=== PATIENT | male | born 1960 | race Caucasian/White ===

== ENCOUNTER 2018-06-11 08:30 | Observation (INO) | payer OTHER, SELFPAY ==
[2018-06-11] VITALS (11 sets, daily range): BP systolic 117–146; BP diastolic 76–92; PULSE 88–105; RESP 16–20; TEMP 36.5–37.2; O2SAT 92–99; BMI 20.5
--- NOTE | 2018-06-11 08:55 | RAD_ITS ---
STUDY: X-RAY - ABDOMEN/PELVIS REASON FOR EXAM: Male, 58 years old. Periumbilical and lower abdominal pain. History of hernia. TECHNIQUE: AP supine and upright views of the abdomen and pelvis. COMPARISON: None. FINDINGS: Normal visualized lung bases. Mild elevation of the right hemidiaphragm. There are dilated loops of the small intestine with a non-distended colon consistent with a small bowel obstruction. Small amount of gas is seen in the colon and rectum. This may represent an incomplete obstruction. There is evidence of thickening of the small bowel wall with separation of bowel loops. Bowel edema should be ruled out. There is no demonstrated free abdominal air. The visualized liver, spleen and kidneys are grossly normal in size and morphology. Master calcification in the pelvis. Degenerative changes in the lower lumbar spine. RAD/Abd Inc Decub and/or Erect IMPRESSION: Findings in keeping with small bowel obstruction which may be partial at this time. Radiographic evidence of bowel wall thickening suggestive of edema. Correlation with a CAT scan is recommended. Electronically Signed: John Hernandez MD at 9:19 EST Tel [phone], Service support ,
--- NOTE | 2018-06-11 08:56 | ED.DCSUM_ITS ---
- ER Visit Summary Date of Service: 06/11/18 Chief Complaint: Hernia and abdominal pain History of Present Illness: The patient is a 58 M presenting for evaluation secondary to abdominal pain. Patient states that he was seen by his primary care physician recently and was diagnosed as having a hernia. He is scheduled to see a general surgeon on Monday of this week. Hernia is located in his right inguinal region and tends to be reduced in the morning, and tends to be out as the day goes on. Patient states that on Monday he had some diffuse crampy abdominal pain some nausea vomiting and diarrhea. He reports that he is continuing to have some mild periumbilical pain and nausea and decreased p.o. intake. He does state that he has had some chills associated with this. Denies any urinary signs or symptoms. He still passing flatus. Physical Examination: Thin male no acute distress. Head normocephalic. Moist mucous membranes. Heart regular rate and rhythm, lungs sounds clear. Abdomen was soft minimally tender in the periumbilical region. Right inguinal region is tender to palpation with a reducible hernia noted with Valsalva. Normal distal pulses. Test Results: Abdominal x-ray shows small bowel obstruction. CT abdomen and pelvis demonstrates small bowel obstruction with a likely incarcerated hernia. CBC shows mild leukocytosis 11.8 Emergency Department Course and Treatment: Patient presented for evaluation secondary to abdominal discomfort in the setting of a hernia. And initial x-ray was obtained which demonstrates of bowel obstruction. Therefore laboratory workup was obtained and a CT abdomen and pelvis with p.o. and IV contrast was performed. This redemonstrates incarcerated hernia with some bowel edema and ascites. Patient was to be following up with Dr. Lopez in 2 days already, so I contacted him. He evaluated the patient at bedside, and states that he will take patient to the operating room. Disposition: Admission Impression: 1. Incarcerated right inguinal hernia 2. Small bowel obstruction This note was generated with [employer] dictation software. It may contain incorrect words, spelling, and punctuation that were not noted in review of the chart prior to signing ED Disposition - Plan for ED Patient: Chief Complaint: Abd Pain Referrals: Yayo Boykin MD [Primary Care Provider] -
--- NOTE | 2018-06-11 09:32 | CT_ITS ---
STUDY: CT ABDOMEN AND PELVIS WITH CONTRAST REASON FOR EXAM: Male, 58 years old. One-week history of umbilical pain. RADIATION DOSAGE (If Supplied By Facility): CTDIvol = ( 7.87 ) mGy, DLP = ( 396.15 ) mGycm TECHNIQUE: Transaxial images were obtained from the dome of the diaphragm to the symphysis pubis with oral contrast. 100ml ml of Isovue 300 contrast was administered. Sagittal and coronal images were reconstructed. Individualized dose optimization techniques were used for this CT. COMPARISON: Comparison is made with abdominal radiograph done earlier in the day. FINDINGS: Mild degree of increased markings at the lung bases slightly more prominent on the right side suggestive of bibasilar atelectasis. The visualized portions of the heart are within normal limits. Small amount of ascites with fluid in the pelvis as well as in the perihepatic region. Normal liver. Normal gallbladder and extrahepatic biliary system. Normal spleen. Normal pancreas. Normal bilateral adrenal glands. Normal right kidney. Normal left kidney. There is a small hiatal hernia. There are dilated loops of the small intestine with a non-distended colon consistent with a small bowel obstruction. The transition zone appears to be in the right lower quadrant at the site of the right inguinal hernia. A bowel loop is seen entering the right inguinal hernia. There is a small left inguinal hernia containing fat. There is evidence of increased markings in the mesentery suggestive of a venous congestion. Small bowel wall thickening. Small amount of fecal material and gas is seen within the colon. The appendix is visualized and appears normal. Normal abdominal aorta. Normal inferior vena cava. Normal retroperitoneum. Normal urinary bladder. There are prostatic calcifications. Normal abdominal wall. There are diffuse degenerative changes of the visualized lumbar spine. CT/Abdomen/Pelvis WITH Contrast IMPRESSION: Small bowel obstruction with the ascites and prominence of the peritoneal fat within the mesentery. There is evidence of a bowel wall thickening and possible venous congestion. This most likely secondary to a hernia in the right inguinal canal. Electronically Signed: John Hernandez MD at 11:39 EST Tel [phone], Service support ,
[2018-06-11 10:02] LABS: Absolute Lymphocyte Count 1.61 X10^3/ul (0.83-4.51); Basophil# 0.03 X10^3/uL; Basophil% 0.3 % (0-1); Eosinophil# 0.29 X10^3/uL; Eosinophils% 2.5 % (0-5); Hematocrit 42.9 % (40-54); Hemoglobin 14.5 g/dl (13.0-16.5); Lymphocyte # 1.61 X10^3/ul (4.0); Lymphocyte % 13.7 % (19-41); Mean Corp Hgb Conc 33.8 g/gl (32-36); Mean Corpuscular Hgb 35.5 pg (27.0-32.0); Mean Corpuscular Volume 105.1 fL (80-94); Mean Platelet Vol. 9.8 fl (6.2-12.0); Monocyte# 0.83 X10^3/uL; Monocyte% 7.1 % (0-10); Neutrophil # 8.98 X10^3/uL (2.7-7.7); Neutrophil % 76.2 % (47-70); POSITIVE COUNT NO; POSITIVE DIFFERENTIAL NO; POSITIVE MORPHOLOGY NO; Platelet Count 254 K/mm3 (150-450); RBC Distribution Width CV 14.7 % (11.6-14.6); RBC Distribution Width SD 55.1 fl (35.1-43.9); Red Blood Count 4.08 M/mm3 (4.6-6.2); White Blood Count 11.8 K/mm3 (4.4-11.0)
[2018-06-11] MEDS: 0.9% Normal Saline 1,000 ML 125 ML IV (10:02)
[2018-06-11 10:17] LABS: Anion Gap 8 (5-15); BUN 19 mg/dL (7-18); BUN/Creat Ratio 24.1 RATIO (10-20); Calcium,Total 8.7 mg/dL (8.5-10.1); Chloride 100 mmol/L (98-107); Creatinine, Serum 0.79 mg/dL (0.70-1.30); EST Glomerular Filtration Rate 106 mL/min (>60); Est Glom Filt Rate - Afr Amer 129 mL/min (>60); Estimated Creatinine Clearance 86.13 ml/min; Glucose 76 mg/dL (74-106); Sodium Level 136 mmol/L (136-145)
--- NOTE | 2018-06-11 14:02 | EKG12_ITS ---
Test Reason : PREOP Blood Pressure : / mmHG Vent. Rate : 094 BPM Atrial Rate : 094 BPM P-R Int : 152 ms QRS Dur : 090 ms QT Int : 358 ms P-R-T Axes : 065 053 045 degrees QTc Int : 447 ms Normal sinus rhythm Normal ECG No previous ECGs available Confirmed by KIMBERLY GREGG, CHRIS ([id number]), editor & co founder HOMERO LANDIN ([id number]) on 06/18/2018 2:25:39 PM Referred By: MAGGY Confirmed By:CHRIS HARRIS MD
--- NOTE | 2018-06-11 14:20 | HERN_PTH ---
PATIENT: JOHANA PORRAS LOC: MS3 U#:[id number] AGE/SX: 58/M ROOM: NE305 RE06/11/[address]: Dr. Se Lopez MD : 1960 BED: 1 DIS: 06/12/2018 SPEC #: [id number] RECD: 06/12/18 10:24 STATUS: TREY RECarlito #: [id number] KENDRA: 06/11/18 14:[address]: Se Lopez DEPT: SURGICAL PATHOLOGY RECD BY: Renato Rice ENTERED: 06/12/18 11:52 SP TYPE: Hernia OTHR DR: Dr. Yayo Boykin MD Tissues: HERNIA Procedures: Surgery Specimen Level II HEADER OPERATION: Exploratory laparoscopy, possible bowel resection, possible inguinal herniorrhaphy PRE-OP DIAGNOSIS: Small bowel obstruction, right inguinal hernia TISSUE SUBMITTED: Hernia sac MICROSCOPIC DIAGNOSIS Hernia sac: A piece of fibroadipose and fibroconnective tissue consistent with hernia sac with reactive changes. SJ:felisa 06/13/18 MICROSCOPIC DESCRIPTION Slides are reviewed. GROSS DESCRIPTION Received in fixative is one container labeled with the patient's name and designated hernia sac. The specimen consists of a single irregular fragment of pink-massey fibrous tissue measuring 3 x 1 x 0.2 cm. No mass lesions are identified. The specimen is sectioned and totally submitted in one cassette. / AM:felisa 06/12/18 TC:5 CPT: 99025
--- NOTE | 2018-06-11 14:29 | PCM.HP.STD ---
Problem List (1) Inguinal hernia of right side with obstruction Status: Acute History of Present Illness Date of Admission: 06/11/18 Chief Complaint: Right inguinal hernia, small bowel obstruction The patient is a 58 year old M who noticed for the last 3 months he has been having bulging in the right groin as well as pain. He says it normally is reducible. He said that on Monday he began having nausea and vomiting and dull aching abdominal pain. Monday he said it was normal and today he said he is just having some dull aching abdominal pain. He reports he is passing flatus but he is belching a lot. He also reported that he had a bowel movement this morning. His groin itself is not hurting at all and there is no bulging. Past Medical History Allergies Penicillins [PCN] Allergy (Verified 06/11/18 08:30) Unknown Sulfa (Sulfonamide Antibiotics) Allergy (Verified 06/11/18 08:30) Unknown Home Medications: Ambulatory Orders Medication Instructions Recorded Adalimumab [Humira] 40 mg PO QWEEK 06/11/18 Amlodipine [Norvasc] 1 tab PO DAILY 06/11/18 Cholecalciferol (VIT D3) [Vitamin 1 tab PO DAILY 06/11/18 D3] Fluticasone 0.05% [Flonase Nasal 1 spray NASAL DAILY PRN 06/11/18 [place]] Folic Acid 2 tab PO DAILY 06/11/18 Meloxicam [Mobic] 1 tab PO DAILY PRN 06/11/18 Methotrexate 2.5 mg PO DAILY 06/11/18 Surgical History: tonsillectomy Smoking Status: Current every day smoker Alcohol: None Drugs: None - *Family History Paternal History Items: No pertinent history Review of Systems Constitutional: Denies: Anorexia, Chills, Fever Cardiovascular: Denies: Chest Pain Respiratory: Denies: Cough, Hemoptysis Gastrointestinal: Reports: Abdominal Pain, Nausea, Vomiting. Denies: Constipation Genitourinary: Denies: Dysuria Musculoskeletal: Denies: Joint Tenderness Skin: Denies: Pruritis, Rash Neurological: Denies: Balance problems Psychiatric: Denies: Anxiety Hematologic/ Lymphatic: Denies: Anemia VTE Information - Inpt Only VTE Present on Admission: No VTE Mechan Device Prophylaxis: SCD's Patient Problems: Active and Suspected Problems Inguinal hernia of right side with obstruction (Acute) - Physical Exam General: Alert, Oriented x3, Cooperative, No apparent distress HEENT: Atraumatic, PERRLA, EOMI Neck: No JVD Lungs: Normal air movement Cardiovascular: Regular rate, Regular Rhythm Abdomen: Soft, Non Tender, Distended - Mildly distended, - - The patient does have a right inguinal hernia but there does not appear to be any skin changes or bulging. Extremities: No clubbing Skin: No rashes Musculoskeletal: No Muscle Wasting Lymphatic: No Cervical, Supraclavicular, or Inguinal Adenopathy Neurological: Cranial nerves II-XII grossly intact Psych/Mental Status: Normal Affect, Appropriate Vital Signs Temp Pulse Resp BP Pulse Ox 98.7 F 93 20 H 135/76 H 98 06/11/18 13:28 06/11/18 13:28 06/11/18 13:28 06/11/18 13:28 06/11/18 13:28 Oxygen Delivery Method Room Air Weight: 135 lb Body Mass Index (BMI) 20.5 Laboratory Tests Past 24 Hrs 06/11/18 06/11/18 09:55 09:55 WBC 11.8 H RBC 4.08 L Hgb 14.5 Hct 42.9 MCV 105.1 H MCH 35.5 H MCHC 33.8 RDW 14.7 H RDW Differential 55.1 H Plt Count 254 MPV 9.8 Immature Gran % (Auto) 0.200 Neut % (Auto) 76.2 H Lymph % (Auto) 13.7 L [place] % (Auto) 7.1 Eos % (Auto) 2.5 Baso % (Auto) 0.3 Absolute Neuts (auto) 9.0 H Absolute Lymphs (auto) 1.61 Total Counted Not Reportable Sodium 136 Potassium 4.0 Chloride 100 Carbon Dioxide 28.0 Anion Gap 8 BUN 19 H Creatinine 0.79 Estim Creat Clear Calc 86.13 Est GFR (MDRD) Af Amer 129 Est GFR (MDRD) Non-Af 106 BUN/Creatinine Ratio 24.1 H Glucose 76 Calcium 8.7 Clinical Impression(s) from Imaging Studies Abdomen X-Ray 06/11/18 08:55 IMPRESSION: Findings in keeping with small bowel obstruction which may be partial at this time. Radiographic evidence of bowel wall thickening suggestive of edema. Correlation with a CAT scan is recommended. Electronically Signed: John Hernanedz MD at 9:19 EST Tel [phone], Service support , Abdomen/Pelvis CT 06/11/18 09:32 IMPRESSION: Small bowel obstruction with the ascites and prominence of the peritoneal fat within the mesentery. There is evidence of a bowel wall thickening and possible venous congestion. This most likely secondary to a hernia in the right inguinal canal. Electronically Signed: John Hernandez MD at 11:39 EST Tel [phone], Service support , Assessment/Plan All Active Problems Inguinal hernia of right side with obstruction (Acute) 58-year-old male with right inguinal hernia and obstruction 1. Patient CT reveals at least a partial small bowel obstruction related to the right inguinal hernia. There is also ascites on the CT which is worrisome for ischemia of the bowel. 2. I plan for exploratory laparoscopy. If there is compromise of the bowel I will converted to mini laparotomy and have a small bowel resection. I would come back at a later time for right inguinal hernia repair. If the bowel is reducible and there are no signs of necrosis I would perform a laparoscopic right inguinal hernia repair with mesh. I explained both of these procedures to the patient in detail. I explained the risks of the procedure including not limited to bleeding, infection, bowel injury, spermatic cord injury, chronic groin pain, mesh infection. The patient consents and agrees to proceed with surgery today. Se Lopez MD Pager: [facility] [address] [place] [address] [place] [address] Office:
--- NOTE | 2018-06-11 14:35 | HP.PCM_ITS ---
Problem List (1) Inguinal hernia of right side with obstruction Status: Acute History of Present Illness Date of Admission: 06/11/18 Chief Complaint: Right inguinal hernia, small bowel obstruction The patient is a 58 year old M who noticed for the last 3 months he has been having bulging in the right groin as well as pain. He says it normally is reducible. He said that on Monday he began having nausea and vomiting and dull aching abdominal pain. Monday he said it was normal and today he said he is just having some dull aching abdominal pain. He reports he is passing flatus but he is belching a lot. He also reported that he had a bowel movement this morning. His groin itself is not hurting at all and there is no bulging. Past Medical History Allergies Penicillins [PCN] Allergy (Verified 06/11/18 08:30) Unknown Sulfa (Sulfonamide Antibiotics) Allergy (Verified 06/11/18 08:30) Unknown Home Medications: Ambulatory Orders Medication Instructions Recorded Adalimumab [Humira] 40 mg PO QWEEK 06/11/18 Amlodipine [Norvasc] 1 tab PO DAILY 06/11/18 Cholecalciferol (VIT D3) [Vitamin 1 tab PO DAILY 06/11/18 D3] Fluticasone 0.05% [Flonase Nasal 1 spray NASAL DAILY PRN 06/11/18 [place]] Folic Acid 2 tab PO DAILY 06/11/18 Meloxicam [Mobic] 1 tab PO DAILY PRN 06/11/18 Methotrexate 2.5 mg PO DAILY 06/11/18 Surgical History: tonsillectomy Smoking Status: Current every day smoker Alcohol: None Drugs: None - *Family History Paternal History Items: No pertinent history Review of Systems Constitutional: Denies: Anorexia, Chills, Fever Cardiovascular: Denies: Chest Pain Respiratory: Denies: Cough, Hemoptysis Gastrointestinal: Reports: Abdominal Pain, Nausea, Vomiting. Denies: Constipation Genitourinary: Denies: Dysuria Musculoskeletal: Denies: Joint Tenderness Skin: Denies: Pruritis, Rash Neurological: Denies: Balance problems Psychiatric: Denies: Anxiety Hematologic/ Lymphatic: Denies: Anemia VTE Information - Inpt Only VTE Present on Admission: No VTE Mechan Device Prophylaxis: SCD's Patient Problems: Active and Suspected Problems Inguinal hernia of right side with obstruction (Acute) - Physical Exam General: Alert, Oriented x3, Cooperative, No apparent distress HEENT: Atraumatic, PERRLA, EOMI Neck: No JVD Lungs: Normal air movement Cardiovascular: Regular rate, Regular Rhythm Abdomen: Soft, Non Tender, Distended - Mildly distended, - - The patient does have a right inguinal hernia but there does not appear to be any skin changes or bulging. Extremities: No clubbing Skin: No rashes Musculoskeletal: No Muscle Wasting Lymphatic: No Cervical, Supraclavicular, or Inguinal Adenopathy Neurological: Cranial nerves II-XII grossly intact Psych/Mental Status: Normal Affect, Appropriate Vital Signs Temp Pulse Resp BP Pulse Ox 98.7 F 93 20 H 135/76 H 98 06/11/18 13:28 06/11/18 13:28 06/11/18 13:28 06/11/18 13:28 06/11/18 13:28 Oxygen Delivery Method Room Air Weight: 135 lb Body Mass Index (BMI) 20.5 Laboratory Tests Past 24 Hrs 06/11/18 06/11/18 09:55 09:55 WBC 11.8 H RBC 4.08 L Hgb 14.5 Hct 42.9 MCV 105.1 H MCH 35.5 H MCHC 33.8 RDW 14.7 H RDW Differential 55.1 H Plt Count 254 MPV 9.8 Immature Gran % (Auto) 0.200 Neut % (Auto) 76.2 H Lymph % (Auto) 13.7 L [place] % (Auto) 7.1 Eos % (Auto) 2.5 Baso % (Auto) 0.3 Absolute Neuts (auto) 9.0 H Absolute Lymphs (auto) 1.61 Total Counted Not Reportable Sodium 136 Potassium 4.0 Chloride 100 Carbon Dioxide 28.0 Anion Gap 8 BUN 19 H Creatinine 0.79 Estim Creat Clear Calc 86.13 Est GFR (MDRD) Af Amer 129 Est GFR (MDRD) Non-Af 106 BUN/Creatinine Ratio 24.1 H Glucose 76 Calcium 8.7 Clinical Impression(s) from Imaging Studies Abdomen X-Ray 06/11/18 08:55 IMPRESSION: Findings in keeping with small bowel obstruction which may be partial at this time. Radiographic evidence of bowel wall thickening suggestive of edema. Correlation with a CAT scan is recommended. Electronically Signed: John Hernandez MD at 9:19 EST Tel [phone], Service support , Abdomen/Pelvis CT 06/11/18 09:32 IMPRESSION: Small bowel obstruction with the ascites and prominence of the peritoneal fat within the mesentery. There is evidence of a bowel wall thickening and possible venous congestion. This most likely secondary to a hernia in the right inguinal canal. Electronically Signed: John Hernandez MD at 11:39 EST Tel [phone], Service support , Assessment/Plan All Active Problems Inguinal hernia of right side with obstruction (Acute) 58-year-old male with right inguinal hernia and obstruction 1. Patient CT reveals at least a partial small bowel obstruction related to the right inguinal hernia. There is also ascites on the CT which is worrisome for ischemia of the bowel. 2. I plan for exploratory laparoscopy. If there is compromise of the bowel I will converted to mini laparotomy and have a small bowel resection. I would come back at a later time for right inguinal hernia repair. If the bowel is reducible and there are no signs of necrosis I would perform a laparoscopic right inguinal hernia repair with mesh. I explained both of these procedures to the patient in detail. I explained the risks of the procedure including not limited to bleeding, infection, bowel injury, spermatic cord injury, chronic groin pain, mesh infection. The patient consents and agrees to proceed with surgery today. Se Lopez MD Pager: [facility] [address] [place] [address] [place] [address] Office:
[2018-06-11] MEDS: Bupiv/Epi 0.5% Mpf 30 ML Vial (17:29)
--- NOTE | 2018-06-11 17:45 | PCM.OPRPT ---
Problem List (1) Inguinal hernia of right side with obstruction Status: Acute Report of Operation Date of Procedure: 06/11/18 Pre-Operative Diagnosis: Small bowel obstruction and right inguinal hernia Post-Operative Diagnosis: Same Surgery/Procedure Performed:: Exploratory laparoscopy with laparoscopic right inguinal hernia repair with mesh Description of Surgical Findings:: The patient had a Oden's hernia of the small bowel with the antimesenteric wall and closed in the right inguinal hernia but the bowel obstruction was actually caused by an adhesion just medial to the inguinal hernia. Once the adhesion was lysed the bowel moved freely back into the abdomen and there was no sign of necrosis. Specimen's removed: Hernia sac Description of Procedure: The patient was brought back to the operating room and general anesthesia was induced. The abdomen was prepped and draped in usual sterile fashion. An incision was made superior to the umbilicus and deepened to the fascia. The fascia was elevated and incised and a finger sweep was performed. A Constantino trocar was placed in the abdomen and the abdomen was insufflated to 15 mmHg. Next the camera was inserted in the abdomen and the abdomen was inspected. The patient did have dilated bowels and some ascites in the pelvis. The patient had a Oden's hernia with sidewall of the small bowel in the inguinal hernia but the partial bowel obstruction was actually caused by an adhesion just medial to the inguinal hernia. These were taken down and the bowel was inspected. The bowel appeared very viable with no sign of necrosis. Next the right inguinal hernia was repaired. The peritoneum was retracted posteriorly and cautery scissors were used to open a pocket in the peritoneum. This was dissected inferiorly until the hernia sac was reached. The hernia sac was retracted into the abdomen as far as it could go but it was very adherent distally. I decided to divide the hernia sac. The distal hernia sac was left in the scrotum and the medial sac was brought into the abdomen and the dissection was carried posteriorly until a large and a pocket was created. Next a large right light 3D mesh was placed into the right inguinal region and tacked medially to the pubic tubercle. It was also tacked anteriorly to the abdominal wall. Next the peritoneum was reapproximated and tacked in place with pro-tack tacks. Next the defect that was created by opening the peritoneum was retracted inward toward the abdomen and a Vicryl Endoloop was placed around this and cinched tightly. The hernia sac was then excised and removed from the body and sent for pathology. This allowed for good coverage of the mesh all around. The pressure was dropped to 5 mmHg and it appeared that the peritoneum was holding the mesh in place and it appeared flat behind the peritoneum. Next the ports were removed under direct visualization and the fascia was grasped and elevated at the umbilical site. The umbilical fascia was closed with a [id number] 0 Vicryl suture. All wounds were anesthetized with Marcaine and closed with interrupted 4-0 Monocryl sutures as well as Steri-Strips and bandages. The patient's testicles were checked at the end of the case and the patient was taken to PACU in stable condition. Patient tolerated the procedure well. Grafts/Implants Used: Right sided large light 3D mesh - Admit VTE Documentation VTE Mechan Device Prophylaxis: SCD's
[2018-06-11] MEDS: Morphine 2 MG/ML Syringe IV (21:26)
[2018-06-11] MEDS: 0.9% NaCl Peripheral Flush Adult/Peds IV (21:26)
[2018-06-11] MEDS: Docusate Sodium 100 MG Capsule PO (21:26)
[2018-06-12] MEDS: 0.9% Normal Saline 1,000 ML 100 ML IV (01:00)
[2018-06-12] MEDS: Tamsulosin HCl 0.4 MG Capsule PO (04:19)
[2018-06-12 04:20] VITALS: BP 117/75; PULSE 77; RESP 16; TEMP 36.9; O2SAT 97
[2018-06-12 06:48] LABS: Absolute Lymphocyte Count 1.11 X10^3/ul (0.83-4.51); Absolute Neutrophil Count 7.1 X10^3/uL (2.0-7.7); Basophil# 0.01 X10^3/uL; Basophil% 0.1 % (0-1); Eosinophil# 0.02 X10^3/uL; Eosinophils% 0.2 % (0-5); Hematocrit 34.9 % (40-54); Hemoglobin 11.9 g/dl (13.0-16.5); Lymphocyte # 1.11 X10^3/ul (4.0); Lymphocyte % 12.5 % (19-41); Mean Corp Hgb Conc 34.1 g/gl (32-36); Mean Corpuscular Volume 105.4 fL (80-94); Mean Platelet Vol. 10.4 fl (6.2-12.0); Monocyte# 0.66 X10^3/uL; Monocyte% 7.4 % (0-10); Neutrophil # 7.07 X10^3/uL (2.7-7.7); Neutrophil % 79.6 % (47-70); Platelet Count 216 K/mm3 (150-450); RBC Distribution Width CV 14.2 % (11.6-14.6); RBC Distribution Width SD 52.4 fl (35.1-43.9); Red Blood Count 3.31 M/mm3 (4.6-6.2); White Blood Count 8.9 K/mm3 (4.4-11.0)
[2018-06-12 06:59] LABS: POSITIVE COUNT NO; POSITIVE DIFFERENTIAL NO; POSITIVE MORPHOLOGY NO
[2018-06-12 07:09] LABS: Anion Gap 8 (5-15); BUN 12 mg/dL (7-18); Calcium,Total 7.7 mg/dL (8.5-10.1); Chloride 105 mmol/L (98-107); Creatinine, Serum 0.67 mg/dL (0.70-1.30); EST Glomerular Filtration Rate 129 mL/min (>60); Est Glom Filt Rate - Afr Amer 156 mL/min (>60); Estimated Creatinine Clearance 101.55 ml/min; Glucose 110 mg/dL (74-106); Potassium 3.6 mmol/L (3.5-5.1); Sodium Level 138 mmol/L (136-145)
[2018-06-12] MEDS: Docusate Sodium 100 MG Capsule PO (08:12)
[2018-06-12] MEDS: Enoxaparin 40 MG/0.4 ML Syringe SC (08:12)
[2018-06-12 10:20] VITALS: BP 123/76; PULSE 68; RESP 16; TEMP 36.8; O2SAT 97
--- NOTE | 2018-06-12 14:06 | DCINST_ITS ---
Discharge Diet: Light diet - advance as tolerated Discharge Activity: Return to Normal Activity, May Not Drive - for 2-3 days or while taking narcotic pain meds., May Shower - with the bandage in place 1-2 days after surgery. Lifting Restrictions: 20 pounds for 6 weeks. Additional Activity Instructions:: Climbing stairs is fine, walking is encouraged. Sitting in bed may be uncomfortable. Sitting up using your lateral muscles (sitting up sideways) is usually more comfortable. Do not drive, work heavy equipment of sign legal documents for 24 hours. If your hernia repair was an ingunial repair, you may have scrotal swelling, an ice pack and/or athletic support can provide more comfort. Pain medications may cause nausea, you should typically eat light foods as you take your pain medications. Pain medications may also cause constipation. If you have difficulty with this, discuss with your doctor. Call your doctor if your incision/area has: Continuous Slow Oozing, Sudden Increased Bleeding, Increased Pain/ Swelling, Increased Redness, Foul Smelling Discharge Call your doctor if you observe: Fever of 101 or Higher Suture Line Care: Avoid Pulling/Pushing, Avoid Pinching/Bending Change Dressing in (Days):: 1 - Leave steri-strips for 1 week. May protect with a guaze bandaid. Cleanse incision/area with: Keep Dressing Clean & Dry Allergies/Adverse Reactions: Allergies Penicillins [PCN] Allergy (Verified 06/11/18 08:30) Unknown Sulfa (Sulfonamide Antibiotics) Allergy (Verified 06/11/18 08:30) Unknown Medications to take at Discharge Adalimumab [Humira] 40 mg PO Q14D 06/11/18 Amlodipine [Norvasc] 1 tab PO DAILY 06/11/18 Cholecalciferol (VIT D3) [Vitamin D3] 1 tab PO DAILY 06/11/18 Fluticasone 0.05% [Flonase Nasal [place]] 1 spray NASAL DAILY PRN 06/11/18 Folic Acid 2 tab PO DAILY 06/11/18 Meloxicam [Mobic] 1 tab PO DAILY PRN 06/11/18 Methotrexate 2.5 mg PO TH 06/11/18 Hydrocodone Bitart/Apap 5-325 [[place] 5/325] 1 - 2 tablet PO Q4H PRN PRN 4 Days #20 tablet 06/12/18 The following prescriptions were given: Hydrocodone Bitart/Apap 5-325 [[place] 5/325] 1 - 2 tablet PO Q4H PRN PRN 4 Days #20 tablet PRN Reason: Severe Pain (-05/02) Primary Care Physician: Yayo Boykin MD [Primary Care Provider] - Test Results: Test results from this visit will be discussed in further detail at your follow- up appointment, if applicable. Please Follow Up With: Se Lopez MD When: Please call to schedule 2 week follow up appointment. [phone]
--- NOTE | 2018-06-12 14:07 | PCM.DC.SUM ---
Discharge Date and Diagnosis - Problem List Patient Problems: Active and Suspected Problems Inguinal hernia of right side with obstruction (Acute) Date of Admission: 06/11/18 Date of Discharge: 06/12/18 - Primary Discharge Diagnosis Active and Suspected Problems Inguinal hernia of right side with obstruction (Acute) Hospital Course and Treatment Imaging Results: Clinical Impression(s) from Imaging Studies Abdomen X-Ray 06/11/18 08:55 IMPRESSION: Findings in keeping with small bowel obstruction which may be partial at this time. Radiographic evidence of bowel wall thickening suggestive of edema. Correlation with a CAT scan is recommended. Electronically Signed: John Hernandez MD at 9:19 EST Tel [phone], Service support , Abdomen/Pelvis CT 06/11/18 09:32 IMPRESSION: Small bowel obstruction with the ascites and prominence of the peritoneal fat within the mesentery. There is evidence of a bowel wall thickening and possible venous congestion. This most likely secondary to a hernia in the right inguinal canal. Electronically Signed: John Hernandez MD at 11:39 EST Tel [phone], Service support , Operations: - - Exploratory laparoscopy with right inguinal hernia repair Procedures: None Summary of Care Provided: The patient is a 58 year old M who presented to the emergency room with abdominal pain and vomiting. The patient had a CT scan which noted dilated small bowel with possible small bowel obstruction. He was taken for exploratory laparoscopy and noted to have an adhesion in the right lower quadrant and right lower quadrant inguinal hernia with Oden's hernia. The small bowel was mobilized and was viable. The right inguinal hernia was laparoscopically repaired with light mesh. The following day the patient was tolerating a diet and his urinary retention that happened overnight had resolved. He was discharged home in stable condition after tolerating regular diet. Patient Problems: Active and Suspected Problems Inguinal hernia of right side with obstruction (Acute) - Physical Exam Vital Signs Temp Pulse Resp BP Pulse Ox 98.3 F 68 16 123/76 H 97 06/12/18 10:20 06/12/18 10:20 06/12/18 10:20 06/12/18 10:20 06/12/18 10:20 Oxygen Flow Rate (L/min) 2 Oxygen Delivery Method Room Air Weight: 135 lb Body Mass Index (BMI) 20.5 Intake and Output for Last 24 Hours 06/10/18 06/11/18 06/12/18 23:59 23:59 23:59 Intake Total 2269 / 2269 1489 / 1489 Output Total 1425 / 1425 Balance 2269 / 2269 64 / 64 Laboratory Tests Past 24 Hrs 06/12/18 06/12/18 05:15 05:15 WBC 8.9 RBC 3.31 L Hgb 11.9 L Hct 34.9 L MCV 105.4 H MCH 36.0 H MCHC 34.1 RDW 14.2 RDW Differential 52.4 H Plt Count 216 MPV 10.4 Immature Gran % (Auto) 0.200 Neut % (Auto) 79.6 H Lymph % (Auto) 12.5 L [place] % (Auto) 7.4 Eos % (Auto) 0.2 Baso % (Auto) 0.1 Absolute Neuts (auto) 7.1 Absolute Lymphs (auto) 1.11 Total Counted Not Reportable Sodium 138 Potassium 3.6 Chloride 105 Carbon Dioxide 25.0 Anion Gap 8 BUN 12 Creatinine 0.67 L Estim Creat Clear Calc 101.55 Est GFR (MDRD) Af Amer 156 Est GFR (MDRD) Non-Af 129 BUN/Creatinine Ratio 18.0 Glucose 110 H Calcium 7.7 L Discharge Diet: Light diet - advance as tolerated Discharge Activity: Return to Normal Activity, May Not Drive - for 2-3 days or while taking narcotic pain meds., May Shower - with the bandage in place 1-2 days after surgery. Additional Activity Instructions:: Climbing stairs is fine, walking is encouraged. Sitting in bed may be uncomfortable. Sitting up using your lateral muscles (sitting up sideways) is usually more comfortable. Do not drive, work heavy equipment of sign legal documents for 24 hours. If your hernia repair was an ingunial repair, you may have scrotal swelling, an ice pack and/or athletic support can provide more comfort. Pain medications may cause nausea, you should typically eat light foods as you take your pain medications. Pain medications may also cause constipation. If you have difficulty with this, discuss with your doctor. Call your doctor if your incision/area has: Continuous Slow Oozing, Sudden Increased Bleeding, Increased Pain/ Swelling, Increased Redness, Foul Smelling Discharge Call your doctor if you observe: Fever of 101 or Higher Suture Line Care: Avoid Pulling/Pushing, Avoid Pinching/Bending Change Dressing in (Days):: 1 - Leave steri-strips for 1 week. May protect with a guaze bandaid. Cleanse incision/area with: Keep Dressing Clean & Dry Home Medications: Medications to take at Discharge Adalimumab [Humira] 40 mg PO Q14D 06/11/18 Amlodipine [Norvasc] 1 tab PO DAILY 06/11/18 Cholecalciferol (VIT D3) [Vitamin D3] 1 tab PO DAILY 06/11/18 Fluticasone 0.05% [Flonase Nasal [place]] 1 spray NASAL DAILY PRN 06/11/18 Folic Acid 2 tab PO DAILY 06/11/18 Meloxicam [Mobic] 1 tab PO DAILY PRN 06/11/18 Methotrexate 2.5 mg PO TH 06/11/18 Hydrocodone Bitart/Apap 5-325 [[place] 5/325] 1 - 2 tablet PO Q4H PRN PRN 4 Days #20 tablet 06/12/18 Following Prescrptions Were Given to Patient: Hydrocodone Bitart/Apap 5-325 [[place] 5/325] 1 - 2 tablet PO Q4H PRN PRN 4 Days #20 tablet PRN Reason: Severe Pain (6-10/10) Primary Care Physician: Yayo Boykin MD [Primary Care Provider] - Please Follow Up With: Se Lopez MD When: Please call to schedule 2 week follow up appointment. [phone] Medical Necessity - Tobacco Use Smoking Status: Current every day smoker Meaningful Use Info Meaningful Use Diagnoses (Choose all that apply): None applicable
[2018-06-12 16:20] VITALS: BP 138/90; PULSE 89; RESP 16; TEMP 37.2; O2SAT 97
[2018-06-12] MEDS: HYDROcodone Bitartrate/Apap 5/325 Tablet PO (17:38)
== END 2018-06-12 18:43 | disposition home or self-care (01) ==
LOC: ED 12:46 → MS3 15:56
PROVIDERS: Admitting Provider Surgery; Emergency Provider Emergency Medicine; Family Provider Family Medicine; PCP Family Medicine; Visit Provider Surgery
PROC: (CPT 49650; principal; 2018-06-11 14:00)
DX: K40.30 Unilateral inguinal hernia, with obstruction, without gangrene, not specified as recurrent (principal); K56.600 Partial intestinal obstruction, unspecified as to cause; M06.9 Rheumatoid arthritis, unspecified; I10 Essential (primary) hypertension; Z79.899 Other long term (current) drug therapy; F17.200 Nicotine dependence, unspecified, uncomplicated
CPT/HCPCS: 49650; 36415; 74019; 74177; 80048; 85025; 88302; 93005; 96361; 96372; 96374; 99218; 99282; J7030; Q9967; A4216; G0378; J2405

== ENCOUNTER → 2019-03-13 11:17 | Outpatient (CLI) | payer OTHER, SELFPAY ==
[2018-06-11 14:11] VITALS: BMI 20.5
[2019-03-13 13:33] LABS: Ferritin 398 ng/mL (26-388); Iron 96 ug/dL (65-175)
[2019-03-13 17:41] LABS: Vitamin B12 248 pg/mL (211-911)
== END ==
PROVIDERS: Family Provider Family Medicine; PCP Family Medicine; Referring Provider Family Medicine; Visit Provider Family Medicine
DX: D53.9 Nutritional anemia, unspecified (principal)
CPT/HCPCS: 36415; 82607; 82728; 82746; 83540

== ENCOUNTER → 2019-05-06 14:03 | Outpatient (CLI) | payer OTHER, SELFPAY ==
[2018-06-11 14:11] VITALS: BMI 20.5
[2019-05-06 14:24] LABS: Absolute Lymphocyte Count 2.26 X10^3/uL (0.83-4.51); Basophil# 0.05 X10^3/uL; Basophil% 0.7 % (0-1); Eosinophil# 0.21 X10^3/uL; Eosinophils% 2.9 % (0-5); Hematocrit 41.1 % (40-54); Hemoglobin 14.3 g/dL (13.0-16.5); Lymphocyte # 2.26 X10^3/ul (4.0); Lymphocyte % 31.3 % (19-41); Mean Corp Hgb Conc 34.8 g/dL (32-36); Mean Corpuscular Hgb 36.1 pg (27.0-32.0); Mean Corpuscular Volume 103.8 fL (80-94); Mean Platelet Vol. 9.8 fl (6.2-12.0); Monocyte# 0.72 X10^3/uL; NRBC Flagged by Analyzer 0 % (0-5); Neutrophil # 3.95 X10^3/uL (2.7-7.7); Neutrophil % 54.7 % (47-70); Platelet Count 209 K/mm3 (150-450); RBC Distribution Width CV 14.9 % (11.6-14.6); RBC Distribution Width SD 56.5 fl (35.1-43.9); Red Blood Count 3.96 M/mm3 (4.6-6.2); White Blood Count 7.2 K/mm3 (4.4-11.0)
[2019-05-06 14:55] LABS: ALB/GLOB Ratio 1.1 RATIO (0.9-2.4); AST(SGOT) 21 U/L (15-37); Alanine Aminotransfer ALT/SGPT 17 U/L (16-61); Albumin, Serum 3.9 g/dL (3.2-5.0); Alkaline Phosphatase 74 U/L (45-117); Anion Gap 5 (5-15); BUN 14 mg/dL (7-18); BUN/Creat Ratio 16.8 RATIO (10-20); Calcium,Total 8.9 mg/dL (8.5-10.1); Chloride 107 mmol/L (98-107); Creatinine, Serum 0.83 mg/dL (0.70-1.30); EST Glomerular Filtration Rate 100 mL/min (>60); Est Glom Filt Rate - Afr Amer 121 mL/min (>60); Globulin 3.6 g/dL (2.2-4.2); Glucose 82 mg/dL (74-106); Protein, Total 7.5 g/dL (6.4-8.2); Sodium Level 139 mmol/L (136-145)
== END ==
PROVIDERS: Family Provider Family Medicine; PCP Family Medicine; Referring Provider Internal Medicine Rheumatology; Visit Provider Internal Medicine Rheumatology
DX: M06.00 Rheumatoid arthritis without rheumatoid factor, unspecified site (principal); M21.40 Flat foot [pes planus] (acquired), unspecified foot; M47.892 Other spondylosis, cervical region; I10 Essential (primary) hypertension; Z79.899 Other long term (current) drug therapy
CPT/HCPCS: 36415; 80053; 85025

== ENCOUNTER → 2019-08-05 13:59 | Outpatient (CLI) | payer OTHER, SELFPAY ==
[2019-07-16 10:11] VITALS: BMI 20.5
[2019-08-05 15:28] LABS: Absolute Lymphocyte Count 3.45 X10^3/uL (0.83-4.51); Absolute Neutrophil Count 4.4 X10^3/uL (2.0-7.7); Basophil# 0.08 X10^3/uL; Basophil% 0.9 % (0-1); Eosinophil# 0.37 X10^3/uL; Eosinophils% 4.1 % (0-5); Hematocrit 40.5 % (40-54); Hemoglobin 13.8 g/dL (13.0-16.5); Lymphocyte # 3.45 X10^3/ul (4.0); Lymphocyte % 37.8 % (19-41); Mean Corp Hgb Conc 34.1 g/dL (32-36); Mean Corpuscular Hgb 35.3 pg (27.0-32.0); Mean Corpuscular Volume 103.6 fL (80-94); Mean Platelet Vol. 10.6 fl (6.2-12.0); Monocyte# 0.87 X10^3/uL; Monocyte% 9.5 % (0-10); NRBC Flagged by Analyzer 0 % (0-5); Neutrophil # 4.35 X10^3/uL (2.7-7.7); Neutrophil % 47.6 % (47-70); Platelet Count 221 K/mm3 (150-450); RBC Distribution Width CV 14.4 % (11.6-14.6); RBC Distribution Width SD 54.2 fl (35.1-43.9); Red Blood Count 3.91 M/mm3 (4.6-6.2); White Blood Count 9.1 K/mm3 (4.4-11.0)
[2019-08-05 15:58] LABS: AST(SGOT) 23 U/L (15-37); Alanine Aminotransfer ALT/SGPT 21 U/L (16-61); Albumin, Serum 3.8 g/dL (3.2-5.0); Alkaline Phosphatase 69 U/L (45-117); Anion Gap 3 (5-15); BUN 20 mg/dL (7-18); BUN/Creat Ratio 21.4 RATIO (10-20); Calcium,Total 9.1 mg/dL (8.5-10.1); Chloride 108 mmol/L (98-107); Creatinine, Serum 0.94 mg/dL (0.70-1.30); EST Glomerular Filtration Rate 87 mL/min (>60); Est Glom Filt Rate - Afr Amer 105 mL/min (>60); Glucose 80 mg/dL (74-106); Protein, Total 7.8 g/dL (6.4-8.2); Sodium Level 139 mmol/L (136-145)
== END ==
PROVIDERS: Family Provider Family Medicine; PCP Family Medicine; Referring Provider Internal Medicine Rheumatology; Visit Provider Internal Medicine Rheumatology
DX: M06.00 Rheumatoid arthritis without rheumatoid factor, unspecified site (principal); M21.40 Flat foot [pes planus] (acquired), unspecified foot; M47.892 Other spondylosis, cervical region; I10 Essential (primary) hypertension; Z79.899 Other long term (current) drug therapy
CPT/HCPCS: 36415; 80053; 85025

== ENCOUNTER → 2019-10-30 | Outpatient (CLI) | payer OTHER, SELFPAY ==
[2019-07-16 10:11] VITALS: BMI 20.5
[2019-10-30 09:32] LABS: ALB/GLOB Ratio 1.1 RATIO (0.9-2.4); AST(SGOT) 17 U/L (15-37); Absolute Lymphocyte Count 1.96 X10^3/uL (0.83-4.51); Absolute Neutrophil Count 3.6 X10^3/uL (2.0-7.7); Alanine Aminotransfer ALT/SGPT 21 U/L (16-61); Albumin, Serum 3.7 g/dL (3.2-5.0); Alkaline Phosphatase 79 U/L (45-117); Anion Gap 5 (5-15); BUN 11 mg/dL (7-18); BUN/Creat Ratio 13.7 RATIO (10-20); Basophil# 0.07 X10^3/uL; Calcium,Total 9.4 mg/dL (8.5-10.1); Chloride 107 mmol/L (98-107); EST Glomerular Filtration Rate 104 mL/min (>60); Eosinophil# 0.19 X10^3/uL; Eosinophils% 2.8 % (0-5); Est Glom Filt Rate - Afr Amer 126 mL/min (>60); Globulin 3.5 g/dL (2.2-4.2); Glucose 73 mg/dL (74-106); Hematocrit 40.7 % (40-54); Hemoglobin 13.6 g/dL (13.0-16.5); Lymphocyte # 1.96 X10^3/ul (4.0); Lymphocyte % 28.7 % (19-41); Mean Corp Hgb Conc 33.4 g/dL (32-36); Mean Corpuscular Hgb 34.8 pg (27.0-32.0); Mean Corpuscular Volume 104.1 fL (80-94); Mean Platelet Vol. 10.5 fl (6.2-12.0); Monocyte# 1.03 X10^3/uL; Monocyte% 15.1 % (0-10); NRBC Flagged by Analyzer 0 % (0-5); Neutrophil # 3.55 X10^3/uL (2.7-7.7); Platelet Count 253 K/mm3 (150-450); Potassium 4.3 mmol/L (3.5-5.1); Protein, Total 7.2 g/dL (6.4-8.2); RBC Distribution Width CV 15.4 % (11.6-14.6); RBC Distribution Width SD 58.9 fl (35.1-43.9); Red Blood Count 3.91 M/mm3 (4.6-6.2); Sodium Level 140 mmol/L (136-145); White Blood Count 6.8 K/mm3 (4.4-11.0)
== END | disposition home or self-care (01) ==
PROVIDERS: Referring Provider Internal Medicine Rheumatology; Visit Provider Internal Medicine Rheumatology
DX: M06.00 Rheumatoid arthritis without rheumatoid factor, unspecified site (principal); M21.40 Flat foot [pes planus] (acquired), unspecified foot; M47.892 Other spondylosis, cervical region; I10 Essential (primary) hypertension; Z79.899 Other long term (current) drug therapy
CPT/HCPCS: 80053; 85025

== ENCOUNTER → 2020-01-30 | Outpatient (CLI) | payer OTHER, SELFPAY ==
[2019-07-16 10:11] VITALS: BMI 20.5
[2020-01-30 08:40] LABS: Absolute Lymphocyte Count 1.64 X10^3/uL (0.83-4.51); Basophil# 0.04 X10^3/uL; Basophil% 0.6 % (0-1); Eosinophil# 0.15 X10^3/uL; Eosinophils% 2.3 % (0-5); Hematocrit 40.8 % (40-54); Hemoglobin 13.9 g/dL (13.0-16.5); Lymphocyte # 1.64 X10^3/ul (4.0); Mean Corp Hgb Conc 34.1 g/dL (32-36); Mean Corpuscular Hgb 35.6 pg (27.0-32.0); Mean Corpuscular Volume 104.6 fL (80-94); Mean Platelet Vol. 10.5 fl (6.2-12.0); Monocyte# 0.75 X10^3/uL; Monocyte% 11.5 % (0-10); NRBC Flagged by Analyzer 0 % (0-5); Neutrophil # 3.95 X10^3/uL (2.7-7.7); Neutrophil % 60.3 % (47-70); Platelet Count 239 K/mm3 (150-450); RBC Distribution Width CV 15.4 % (11.6-14.6); RBC Distribution Width SD 58.4 fl (35.1-43.9); White Blood Count 6.6 K/mm3 (4.4-11.0)
[2020-01-30 09:00] LABS: AST(SGOT) 18 U/L (15-37); Alanine Aminotransfer ALT/SGPT 20 U/L (16-61); Albumin, Serum 3.7 g/dL (3.2-5.0); Alkaline Phosphatase 64 U/L (45-117); Anion Gap 6 (5-15); BUN 8 mg/dL (7-18); BUN/Creat Ratio 10.4 RATIO (10-20); Calcium,Total 8.7 mg/dL (8.5-10.1); Chloride 104 mmol/L (98-107); Creatinine, Serum 0.77 mg/dL (0.70-1.30); EST Glomerular Filtration Rate 109 mL/min (>60); Est Glom Filt Rate - Afr Amer 132 mL/min (>60); Globulin 3.8 g/dL (2.2-4.2); Glucose 88 mg/dL (74-106); Potassium 3.7 mmol/L (3.5-5.1); Protein, Total 7.5 g/dL (6.4-8.2); Sodium Level 138 mmol/L (136-145)
== END | disposition home or self-care (01) ==
LOC: LABSPEC 08:32
PROVIDERS: Referring Provider Internal Medicine Rheumatology; Visit Provider Internal Medicine Rheumatology
DX: M06.09 Rheumatoid arthritis without rheumatoid factor, multiple sites (principal); M21.40 Flat foot [pes planus] (acquired), unspecified foot; M47.892 Other spondylosis, cervical region; I10 Essential (primary) hypertension; Z79.899 Other long term (current) drug therapy
CPT/HCPCS: 80053; 85025

== ENCOUNTER → 2020-05-01 | Outpatient (CLI) | payer OTHER, SELFPAY ==
[2019-07-16 10:11] VITALS: BMI 20.5
[2020-05-01 10:05] LABS: Absolute Lymphocyte Count 1.87 X10^3/uL (0.83-4.51); Absolute Neutrophil Count 5.9 X10^3/uL (2.0-7.7); Basophil# 0.06 X10^3/uL; Basophil% 0.7 % (0-1); Eosinophil# 0.15 X10^3/uL; Eosinophils% 1.7 % (0-5); Hematocrit 41.4 % (40-54); Hemoglobin 13.7 g/dL (13.0-16.5); Lymphocyte # 1.87 X10^3/ul (4.0); Lymphocyte % 21.5 % (19-41); Mean Corp Hgb Conc 33.1 g/dL (32-36); Mean Corpuscular Hgb 35.6 pg (27.0-32.0); Mean Corpuscular Volume 107.5 fL (80-94); Mean Platelet Vol. 9.6 fl (6.2-12.0); Monocyte# 0.73 X10^3/uL; Monocyte% 8.4 % (0-10); NRBC Flagged by Analyzer 0 % (0-5); Neutrophil # 5.86 X10^3/uL (2.7-7.7); Neutrophil % 67.4 % (47-70); Platelet Count 235 K/mm3 (150-450); RBC Distribution Width SD 58.7 fl (35.1-43.9); Red Blood Count 3.85 M/mm3 (4.6-6.2); White Blood Count 8.7 K/mm3 (4.4-11.0)
[2020-05-01 10:34] LABS: ALB/GLOB Ratio 0.8 RATIO (0.9-2.4); AST(SGOT) 17 U/L (15-37); Alanine Aminotransfer ALT/SGPT 19 U/L (16-61); Albumin, Serum 3.4 g/dL (3.2-5.0); Alkaline Phosphatase 79 U/L (45-117); Anion Gap 4 (5-15); BUN 11 mg/dL (7-18); BUN/Creat Ratio 13.2 RATIO (10-20); Chloride 106 mmol/L (98-107); Creatinine, Serum 0.84 mg/dL (0.70-1.30); EST Glomerular Filtration Rate 99 mL/min (>60); Est Glom Filt Rate - Afr Amer 120 mL/min (>60); Globulin 4.1 g/dL (2.2-4.2); Glucose 85 mg/dL (74-106); Potassium 3.8 mmol/L (3.5-5.1); Protein, Total 7.5 g/dL (6.4-8.2); Sodium Level 140 mmol/L (136-145)
== END | disposition home or self-care (01) ==
LOC: LABSPEC 09:44
PROVIDERS: Referring Provider Internal Medicine Rheumatology; Visit Provider Internal Medicine Rheumatology
DX: M06.09 Rheumatoid arthritis without rheumatoid factor, multiple sites (principal); M21.40 Flat foot [pes planus] (acquired), unspecified foot; M47.892 Other spondylosis, cervical region; I10 Essential (primary) hypertension; Z79.899 Other long term (current) drug therapy
CPT/HCPCS: 80053; 85025

== ENCOUNTER → 2020-07-02 | Outpatient (CLI) | payer OTHER, SELFPAY ==
[2019-07-16 10:11] VITALS: BMI 20.5
[2020-07-02 09:45] LABS: Absolute Lymphocyte Count 2.12 X10^3/uL (0.83-4.51); Absolute Neutrophil Count 6.5 X10^3/uL (2.0-7.7); Basophil# 0.07 X10^3/uL; Basophil% 0.7 % (0-1); Hematocrit 41.2 % (40-54); Hemoglobin 14.3 g/dL (13.0-16.5); Lymphocyte # 2.12 X10^3/ul (4.0); Lymphocyte % 21.9 % (19-41); Mean Corp Hgb Conc 34.7 g/dL (32-36); Mean Corpuscular Volume 106.5 fL (80-94); Monocyte# 0.85 X10^3/uL; Monocyte% 8.8 % (0-10); NRBC Flagged by Analyzer 0 % (0-5); Neutrophil # 6.52 X10^3/uL (2.7-7.7); Neutrophil % 67.4 % (47-70); Platelet Count 226 K/mm3 (150-450); RBC Distribution Width CV 15.6 % (11.6-14.6); RBC Distribution Width SD 59.7 fl (35.1-43.9); Red Blood Count 3.87 M/mm3 (4.6-6.2); White Blood Count 9.7 K/mm3 (4.4-11.0)
[2020-07-02 09:59] LABS: AST(SGOT) 19 U/L (15-37); Alanine Aminotransfer ALT/SGPT 24 U/L (16-61); Albumin, Serum 3.8 g/dL (3.2-5.0); Alkaline Phosphatase 78 U/L (45-117); Anion Gap 5 (5-15); BUN 10 mg/dL (7-18); BUN/Creat Ratio 12.3 RATIO (10-20); Calcium,Total 9.4 mg/dL (8.5-10.1); Chloride 101 mmol/L (98-107); Creatinine, Serum 0.81 mg/dL (0.70-1.30); EST Glomerular Filtration Rate 102 mL/min (>60); Est Glom Filt Rate - Afr Amer 124 mL/min (>60); Globulin 3.9 g/dL (2.2-4.2); Glucose 87 mg/dL (74-106); Potassium 3.5 mmol/L (3.5-5.1); Protein, Total 7.7 g/dL (6.4-8.2); Sodium Level 138 mmol/L (136-145)
== END | disposition home or self-care (01) ==
LOC: LABSPEC 09:26
PROVIDERS: Referring Provider Internal Medicine Rheumatology; Visit Provider Internal Medicine Rheumatology
DX: M06.09 Rheumatoid arthritis without rheumatoid factor, multiple sites (principal); M21.40 Flat foot [pes planus] (acquired), unspecified foot; M47.892 Other spondylosis, cervical region; I10 Essential (primary) hypertension; Z79.899 Other long term (current) drug therapy
CPT/HCPCS: 80053; 85025

== ENCOUNTER → 2020-09-22 | Outpatient (CLI) | payer OTHER, SELFPAY ==
[2019-07-16 10:11] VITALS: BMI 20.5
[2020-09-22 09:50] LABS: Absolute Neutrophil Count 6.1 X10^3/uL (2.0-7.7); Basophil# 0.05 X10^3/uL; Basophil% 0.5 % (0-1); Eosinophil# 0.13 X10^3/uL; Eosinophils% 1.4 % (0-5); Hematocrit 41.8 % (40-54); Hemoglobin 13.8 g/dL (13.0-16.5); Lymphocyte % 21.6 % (19-41); Mean Corpuscular Hgb 35.4 pg (27.0-32.0); Mean Corpuscular Volume 107.2 fL (80-94); Mean Platelet Vol. 10.6 fl (6.2-12.0); Monocyte# 0.94 X10^3/uL; Monocyte% 10.1 % (0-10); NRBC Flagged by Analyzer 0 % (0-5); Neutrophil # 6.14 X10^3/uL (2.7-7.7); Neutrophil % 66.2 % (47-70); Platelet Count 279 K/mm3 (150-450); RBC Distribution Width CV 14.6 % (11.6-14.6); RBC Distribution Width SD 56.4 fl (35.1-43.9); White Blood Count 9.3 K/mm3 (4.4-11.0)
[2020-09-22 09:55] LABS: AST(SGOT) 27 U/L (15-37); Alanine Aminotransfer ALT/SGPT 36 U/L (16-61); Albumin, Serum 3.8 g/dL (3.2-5.0); Alkaline Phosphatase 77 U/L (45-117); Anion Gap 5 (5-15); BUN 14 mg/dL (7-18); BUN/Creat Ratio 16.9 RATIO (10-20); Calcium,Total 8.8 mg/dL (8.5-10.1); Chloride 104 mmol/L (98-107); Creatinine, Serum 0.83 mg/dL (0.70-1.30); EST Glomerular Filtration Rate 100 mL/min (>60); Est Glom Filt Rate - Afr Amer 121 mL/min (>60); Globulin 3.9 g/dL (2.2-4.2); Glucose 97 mg/dL (74-106); Potassium 3.9 mmol/L (3.5-5.1); Protein, Total 7.7 g/dL (6.4-8.2); Sodium Level 139 mmol/L (136-145)
== END | disposition home or self-care (01) ==
LOC: LABSPEC 09:35
PROVIDERS: Referring Provider Internal Medicine Rheumatology; Visit Provider Internal Medicine Rheumatology
DX: M06.09 Rheumatoid arthritis without rheumatoid factor, multiple sites (principal); M21.40 Flat foot [pes planus] (acquired), unspecified foot; M47.892 Other spondylosis, cervical region; I10 Essential (primary) hypertension; Z79.899 Other long term (current) drug therapy
CPT/HCPCS: 80053; 85025

== ENCOUNTER → 2020-12-07 | Outpatient (CLI) | payer OTHER, SELFPAY ==
[2019-07-16 10:11] VITALS: BMI 20.5
[2020-12-07 09:39] LABS: Absolute Lymphocyte Count 1.94 X10^3/uL (0.83-4.51); Absolute Neutrophil Count 4.3 X10^3/uL (2.0-7.7); Basophil# 0.07 X10^3/uL; Eosinophils% 1.4 % (0-5); Hematocrit 41.3 % (40-54); Hemoglobin 13.9 g/dL (13.0-16.5); Lymphocyte # 1.94 X10^3/ul (0.83-4.51); Lymphocyte % 27.2 % (19-41); Mean Corp Hgb Conc 33.7 g/dL (32-36); Mean Corpuscular Hgb 35.4 pg (27.0-32.0); Mean Corpuscular Volume 105.1 fL (80-94); Mean Platelet Vol. 10.2 fl (6.2-12.0); Monocyte% 9.8 % (0-10); NRBC Flagged by Analyzer 0 % (0-5); Neutrophil # 4.29 X10^3/uL (2.7-7.7); Neutrophil % 60.3 % (47-70); Platelet Count 294 K/mm3 (150-450); RBC Distribution Width CV 15.1 % (11.6-14.6); RBC Distribution Width SD 58.4 fl (35.1-43.9); Red Blood Count 3.93 M/mm3 (4.6-6.2); White Blood Count 7.1 K/mm3 (4.4-11.0)
[2020-12-07 09:57] LABS: ALB/GLOB Ratio 0.9 RATIO (0.9-2.4); AST(SGOT) 18 U/L (15-37); Alanine Aminotransfer ALT/SGPT 26 U/L (16-61); Albumin, Serum 3.7 g/dL (3.2-5.0); Alkaline Phosphatase 81 U/L (45-117); Anion Gap 2 (5-15); BUN 14 mg/dL (7-18); BUN/Creat Ratio 15.6 RATIO (10-20); Calcium,Total 9.2 mg/dL (8.5-10.1); Chloride 105 mmol/L (98-107); EST Glomerular Filtration Rate 91 mL/min (>60); Est Glom Filt Rate - Afr Amer 110 mL/min (>60); Globulin 4.1 g/dL (2.2-4.2); Glucose 99 mg/dL (74-106); Potassium 3.7 mmol/L (3.5-5.1); Protein, Total 7.8 g/dL (6.4-8.2); Sodium Level 137 mmol/L (136-145)
== END | disposition home or self-care (01) ==
LOC: LABSPEC 08:44
PROVIDERS: Referring Provider Internal Medicine Rheumatology; Visit Provider Internal Medicine Rheumatology
DX: M06.00 Rheumatoid arthritis without rheumatoid factor, unspecified site (principal); M21.40 Flat foot [pes planus] (acquired), unspecified foot; M47.892 Other spondylosis, cervical region; I10 Essential (primary) hypertension
CPT/HCPCS: 80053; 85025

== ENCOUNTER → 2021-03-04 | Outpatient (CLI) | payer OTHER, SELFPAY ==
[2019-07-16 10:11] VITALS: BMI 20.5
[2021-03-04 13:15] LABS: Absolute Lymphocyte Count 1.99 X10^3/uL (0.83-4.51); Absolute Neutrophil Count 2.6 X10^3/uL (2.0-7.7); Basophil# 0.05 X10^3/uL; Basophil% 0.9 % (0-1); Eosinophil# 0.18 X10^3/uL; Eosinophils% 3.3 % (0-5); Hemoglobin 13.6 g/dL (13.0-16.5); Lymphocyte # 1.99 X10^3/ul (0.83-4.51); Lymphocyte % 36.1 % (19-41); Mean Corp Hgb Conc 34.9 g/dL (32-36); Mean Platelet Vol. 9.8 fl (6.2-12.0); Monocyte# 0.68 X10^3/uL; Monocyte% 12.3 % (0-10); NRBC Flagged by Analyzer 0 % (0-5); Neutrophil # 2.59 X10^3/uL (2.7-7.7); Platelet Count 214 K/mm3 (150-450); RBC Distribution Width CV 15.4 % (11.6-14.6); RBC Distribution Width SD 59.2 fl (35.1-43.9); Red Blood Count 3.68 M/mm3 (4.6-6.2); White Blood Count 5.5 K/mm3 (4.4-11.0)
[2021-03-04 13:34] LABS: AST(SGOT) 21 U/L (15-37); Alanine Aminotransfer ALT/SGPT 25 U/L (16-61); Albumin, Serum 3.8 g/dL (3.2-5.0); Alkaline Phosphatase 77 U/L (45-117); Anion Gap 8 (5-15); BUN 9 mg/dL (7-18); BUN/Creat Ratio 13.4 RATIO (10-20); Calcium,Total 8.6 mg/dL (8.5-10.1); Chloride 105 mmol/L (98-107); Creatinine, Serum 0.67 mg/dL (0.70-1.30); EST Glomerular Filtration Rate 127 mL/min (>60); Est Glom Filt Rate - Afr Amer 154 mL/min (>60); Globulin 3.8 g/dL (2.2-4.2); Glucose 83 mg/dL (74-106); Potassium 3.8 mmol/L (3.5-5.1); Protein, Total 7.6 g/dL (6.4-8.2); Sodium Level 139 mmol/L (136-145)
== END | disposition home or self-care (01) ==
LOC: LABSPEC 13:08
PROVIDERS: Visit Provider Internal Medicine Rheumatology
DX: M06.00 Rheumatoid arthritis without rheumatoid factor, unspecified site (principal); M21.40 Flat foot [pes planus] (acquired), unspecified foot; M47.892 Other spondylosis, cervical region; I10 Essential (primary) hypertension; Z79.899 Other long term (current) drug therapy
CPT/HCPCS: 80053; 85025

== ENCOUNTER → 2021-06-09 | Outpatient (CLI) | payer OTHER, SELFPAY ==
[2021-06-09 12:01] LABS: Absolute Lymphocyte Count 1.69 X10^3/uL (0.83-4.51); Absolute Neutrophil Count 3.2 X10^3/uL (2.0-7.7); Basophil# 0.05 X10^3/uL; Basophil% 0.9 % (0-1); Eosinophils% 1.7 % (0-5); Hematocrit 39.1 % (40-54); Hemoglobin 13.2 g/dL (13.0-16.5); Lymphocyte # 1.69 X10^3/ul (0.83-4.51); Mean Corp Hgb Conc 33.8 g/dL (32-36); Mean Corpuscular Hgb 36.8 pg (27.0-32.0); Mean Corpuscular Volume 108.9 fL (80-94); Mean Platelet Vol. 10.5 fl (6.2-12.0); Monocyte# 0.75 X10^3/uL; Monocyte% 12.9 % (0-10); NRBC Flagged by Analyzer 0 % (0-5); Neutrophil # 3.22 X10^3/uL (2.7-7.7); Neutrophil % 55.2 % (47-70); Platelet Count 203 K/mm3 (150-450); RBC Distribution Width CV 15.2 % (11.6-14.6); RBC Distribution Width SD 59.6 fl (35.1-43.9); Red Blood Count 3.59 M/mm3 (4.6-6.2); White Blood Count 5.8 K/mm3 (4.4-11.0)
[2021-06-09 12:19] LABS: ALB/GLOB Ratio 0.9 RATIO (0.9-2.4); AST(SGOT) 27 U/L (15-37); Alanine Aminotransfer ALT/SGPT 35 U/L (16-61); Albumin, Serum 3.5 g/dL (3.2-5.0); Alkaline Phosphatase 68 U/L (45-117); Anion Gap 3 (5-15); BUN 9 mg/dL (7-18); BUN/Creat Ratio 11.2 RATIO (10-20); Calcium,Total 8.8 mg/dL (8.5-10.1); Chloride 107 mmol/L (98-107); EST Glomerular Filtration Rate 103 mL/min (>60); Est Glom Filt Rate - Afr Amer 125 mL/min (>60); Globulin 3.9 g/dL (2.2-4.2); Glucose 82 mg/dL (74-106); Potassium 4.1 mmol/L (3.5-5.1); Protein, Total 7.4 g/dL (6.4-8.2); Sodium Level 139 mmol/L (136-145)
== END | disposition home or self-care (01) ==
LOC: LABSPEC 10:30
PROVIDERS: Referring Provider Internal Medicine Rheumatology; Visit Provider Internal Medicine Rheumatology
DX: M06.00 Rheumatoid arthritis without rheumatoid factor, unspecified site (principal); M21.40 Flat foot [pes planus] (acquired), unspecified foot; M47.892 Other spondylosis, cervical region; I10 Essential (primary) hypertension; Z79.899 Other long term (current) drug therapy
CPT/HCPCS: 80053; 85025

== ENCOUNTER 2021-08-31 16:02 | Outpatient (CLI) | payer OTHER, SELFPAY ==
[2021-08-31 07:30] LABS: Absolute Lymphocyte Count 2.05 X10^3/uL (0.83-4.51); Absolute Neutrophil Count 4.5 X10^3/uL (2.0-7.7); Basophil# 0.06 X10^3/uL; Basophil% 0.8 % (0-1); Eosinophils% 3.9 % (0-5); Hematocrit 40.1 % (40-54); Lymphocyte # 2.05 X10^3/ul (0.83-4.51); Lymphocyte % 26.7 % (19-41); Mean Corp Hgb Conc 34.9 g/dL (32-36); Mean Corpuscular Hgb 36.6 pg (27.0-32.0); Mean Platelet Vol. 10.2 fl (6.2-12.0); Monocyte# 0.71 X10^3/uL; Monocyte% 9.3 % (0-10); NRBC Flagged by Analyzer 0 % (0-5); Neutrophil # 4.53 X10^3/uL (2.7-7.7); Platelet Count 247 K/mm3 (150-450); RBC Distribution Width CV 13.5 % (11.6-14.6); RBC Distribution Width SD 51.4 fl (35.1-43.9); Red Blood Count 3.82 M/mm3 (4.6-6.2); White Blood Count 7.7 K/mm3 (4.4-11.0)
[2021-08-31 08:48] LABS: ALB/GLOB Ratio 0.9 RATIO (0.9-2.4); AST(SGOT) 19 U/L (15-37); Alanine Aminotransfer ALT/SGPT 28 U/L (16-61); Albumin, Serum 3.6 g/dL (3.2-5.0); Alkaline Phosphatase 75 U/L (45-117); Anion Gap 7 (5-15); BUN 14 mg/dL (7-18); BUN/Creat Ratio 16.8 RATIO (10-20); Calcium,Total 8.9 mg/dL (8.5-10.1); Chloride 105 mmol/L (98-107); Creatinine, Serum 0.83 mg/dL (0.70-1.30); EST Glomerular Filtration Rate 99 mL/min (>60); Est Glom Filt Rate - Afr Amer 120 mL/min (>60); Glucose 92 mg/dL (74-106); Potassium 3.8 mmol/L (3.5-5.1); Protein, Total 7.6 g/dL (6.4-8.2); Sodium Level 137 mmol/L (136-145)
== END 2021-08-31 23:59 | disposition home or self-care (01) ==
LOC: LAB.FUTURE 16:02
PROVIDERS: Visit Provider Internal Medicine Rheumatology
DX: M06.00 Rheumatoid arthritis without rheumatoid factor, unspecified site (principal); M21.40 Flat foot [pes planus] (acquired), unspecified foot; M47.892 Other spondylosis, cervical region; I10 Essential (primary) hypertension; Z79.899 Other long term (current) drug therapy
CPT/HCPCS: 36415; 80053; 85025

== ENCOUNTER → 2021-12-02 | Outpatient (CLI) | payer OTHER, SELFPAY ==
[2021-12-02 10:46] LABS: Absolute Lymphocyte Count 1.78 X10^3/uL (0.83-4.51); Absolute Neutrophil Count 4.2 X10^3/uL (2.0-7.7); Basophil# 0.05 X10^3/uL; Basophil% 0.7 % (0-1); Eosinophil# 0.16 X10^3/uL; Eosinophils% 2.3 % (0-5); Hematocrit 38.6 % (40-54); Hemoglobin 13.3 g/dL (13.0-16.5); Lymphocyte # 1.78 X10^3/ul (0.83-4.51); Lymphocyte % 25.7 % (19-41); Mean Corp Hgb Conc 34.5 g/dL (32-36); Mean Corpuscular Hgb 35.8 pg (27.0-32.0); Mean Corpuscular Volume 103.8 fL (80-94); Monocyte# 0.72 X10^3/uL; Monocyte% 10.4 % (0-10); NRBC Flagged by Analyzer 0 % (0-5); Neutrophil # 4.18 X10^3/uL (2.7-7.7); Neutrophil % 60.5 % (47-70); Platelet Count 232 K/mm3 (150-450); RBC Distribution Width CV 16.5 % (11.6-14.6); RBC Distribution Width SD 61.5 fl (35.1-43.9); Red Blood Count 3.72 M/mm3 (4.6-6.2); White Blood Count 6.9 K/mm3 (4.4-11.0)
[2021-12-02 10:54] LABS: Albumin, Serum 3.5 g/dL (3.2-5.0); BUN 10 mg/dL (7-18); Creatinine, Serum 0.84 mg/dL (0.70-1.30); EST Glomerular Filtration Rate 99 mL/min (>60); Est Glom Filt Rate - Afr Amer 119 mL/min (>60); Glucose 89 mg/dL (74-106); Protein, Total 7.4 g/dL (6.4-8.2)
[2021-12-02 10:55] LABS: ALB/GLOB Ratio 0.9 RATIO (0.9-2.4); AST(SGOT) 15 U/L (15-37); Alanine Aminotransfer ALT/SGPT 19 U/L (16-61); Alkaline Phosphatase 71 U/L (45-117); Anion Gap 4 (5-15); Calcium,Total 8.9 mg/dL (8.5-10.1); Chloride 109 mmol/L (98-107); Globulin 3.9 g/dL (2.2-4.2); Potassium 3.8 mmol/L (3.5-5.1); Sodium Level 140 mmol/L (136-145)
== END | disposition home or self-care (01) ==
LOC: LABSPEC 10:33
PROVIDERS: Visit Provider Internal Medicine Rheumatology
DX: M06.00 Rheumatoid arthritis without rheumatoid factor, unspecified site (principal); M21.40 Flat foot [pes planus] (acquired), unspecified foot; M47.892 Other spondylosis, cervical region; I10 Essential (primary) hypertension; Z79.899 Other long term (current) drug therapy
CPT/HCPCS: 80053; 85025

== ENCOUNTER → 2021-12-10 | Outpatient (CLI) | payer OTHER, SELFPAY ==
--- NOTE | 2021-12-10 16:36 | CT_ITS ---
EXAM: CT CHEST, LUNG CANCER SCREENING WITHOUT INTRAVENOUS CONTRAST CLINICAL INDICATION: SCREENING TECHNIQUE: Helically acquired images were obtained of the chest without intravenous contrast using low dose (LDCT) lung cancer screening protocol. This CT exam was performed using one or more of the following dose reduction techniques: automated exposure control, adjustment of the mA and/or kV according to patient size, and/or use of iterative reconstruction technique. This report was created using [employer] report generation technology. COMPARISON: None. FINDINGS: LUNGS AND PLEURAL SPACES: Linear scarring noted within the left lower lobe. No evidence of lung mass or suspicious pulmonary nodule. No pleural effusion or thickening. No pneumothorax. HEART: Unremarkable. Heart size is normal. No pericardial effusion. No significant coronary artery calcifications. MEDIASTINUM: Unremarkable. No mediastinal or hilar adenopathy. Esophagus is unremarkable. No hiatal hernia. THYROID: Unremarkable. No thyroid lesions. BONES/JOINTS: Unremarkable. No suspicious lytic or blastic abnormality. VASCULATURE: Unremarkable. Thoracic aorta is non-dilated. LYMPH NODES: Unremarkable. No enlarged lymph nodes. CT/Low Dose CT Lung Screening IMPRESSION: 1. No evidence of a lung mass or suspicious pulmonary nodule. 2. ACR Lung CT Screening Reporting T Data System (Lung-RADS) score: 1 - Recommend continued annual screening with low-dose CT (LDCT) in 12 months. } Electronically Signed: Edgar Becerra MD at 8:34 EDT ,
== END | disposition home or self-care (01) ==
PROVIDERS: Referring Provider Family Medicine; Visit Provider Family Medicine
DX: Z12.2 Encounter for screening for malignant neoplasm of respiratory organs (principal); Z87.891 Personal history of nicotine dependence
CPT/HCPCS: 71271

== ENCOUNTER → 2022-01-07 | Outpatient (CLI) | payer OTHER, SELFPAY ==
--- NOTE | 2022-01-07 12:53 | CT_ITS ---
STUDY: CT SOFT TISSUE NECK WITH CONTRAST REASON FOR EXAM: Male, 61 years old. HOARSENESS/R VOCAL CORD PARALYSIS RADIATION DOSAGE (If Supplied By Facility): CTDIvol = ( 10.87 ) mGy, DLP = ( 293.29 ) mGycm TECHNIQUE: The patient was scanned in a multi-detector CT scanner. High resolution transaxial imaging was performed following intravenous administration of IV 75mL [id number]-[id number]. Sagittal and coronal images were reconstructed. Individualized dose optimization techniques were used for this CT. COMPARISON: None. FINDINGS: Normal bilateral parotid glands. Normal bilateral concrete building assembler spaces. Normal bilateral parapharyngeal spaces. Normal bilateral carotid spaces. Normal bilateral sublingual and submandibular glands and spaces. Normal visualized nasopharynx. Normal retropharyngeal space. Normal perivertebral space. Normal visualized bilateral faucial tonsils. The visualized tongue, tongue base and oropharynx are normal. The visualized cervical lymph nodes (levels I-) are within normal size limits, and maintain normal morphology. There is no demonstrated solid or cystic mass lesion. There is no abnormal contrast enhancement. Normal epiglottis, bilateral vallecula and hypopharynx. The pre-epiglottic and paraglottic adipose spaces are normal. There is evidence of a convexity of the left vocal cord suggestive of left vocal cord paralysis. Normal subglottic trachea. Normal bilateral lobes of the thyroid gland. Normal visualized pulmonary apices. Normal visualized paranasal sinuses. There is degenerative changes of the cervical spine. Loss of normal cervical lordosis CT/Soft Tissue Neck WITH Contrast IMPRESSION: Findings suggestive of a left vocal cord paralysis. Electronically Signed: John Hernandez MD at 14:04 EDT ,
[2022-01-07 13:05] LABS: CREATININE FINGERSTICK < 0.9 mg/dL (0.70-1.30); EGFR FINGERSTICK > 60.0000 mL/min (>60)
== END | disposition home or self-care (01) ==
LOC: CT 12:51
PROVIDERS: PCP Family Medicine; Referring Provider Otolaryngology; Visit Provider Otolaryngology
DX: J38.01 Paralysis of vocal cords and larynx, unilateral (principal); R49.0 Dysphonia
CPT/HCPCS: 70491; Q9967

== ENCOUNTER → 2022-02-24 | Outpatient (CLI) | payer OTHER, SELFPAY ==
[2022-02-24 10:15] LABS: Absolute Lymphocyte Count 1.98 X10^3/uL (0.83-4.51); Basophil# 0.04 X10^3/uL; Basophil% 0.7 % (0-1); Eosinophil# 0.16 X10^3/uL; Eosinophils% 2.7 % (0-5); Hematocrit 37.4 % (40-54); Hemoglobin 13.3 g/dL (13.0-16.5); Lymphocyte # 1.98 X10^3/ul (0.83-4.51); Lymphocyte % 33.9 % (19-41); Mean Corp Hgb Conc 35.6 g/dL (32-36); Mean Corpuscular Hgb 37.6 pg (27.0-32.0); Mean Corpuscular Volume 105.6 fL (80-94); Mean Platelet Vol. 9.9 fl (6.2-12.0); Monocyte# 0.62 X10^3/uL; Monocyte% 10.6 % (0-10); NRBC Flagged by Analyzer 0 % (0-5); Neutrophil # 3.03 X10^3/uL (2.7-7.7); Neutrophil % 51.9 % (47-70); Platelet Count 221 K/mm3 (150-450); RBC Distribution Width CV 15.3 % (11.6-14.6); RBC Distribution Width SD 58.1 fl (35.1-43.9); Red Blood Count 3.54 M/mm3 (4.6-6.2); White Blood Count 5.8 K/mm3 (4.4-11.0)
[2022-02-24 10:29] LABS: ALB/GLOB Ratio 0.9 RATIO (0.9-2.4); AST(SGOT) 16 U/L (15-37); Alanine Aminotransfer ALT/SGPT 23 U/L (16-61); Albumin, Serum 3.5 g/dL (3.2-5.0); Alkaline Phosphatase 64 U/L (45-117); Anion Gap 4 (5-15); BUN 12 mg/dL (7-18); Calcium,Total 8.7 mg/dL (8.5-10.1); Chloride 107 mmol/L (98-107); Creatinine, Serum 0.86 mg/dL (0.70-1.30); EST Glomerular Filtration Rate 95 mL/min (>60); Est Glom Filt Rate - Afr Amer 115 mL/min (>60); Globulin 3.7 g/dL (2.2-4.2); Glucose 116 mg/dL (74-106); Potassium 3.6 mmol/L (3.5-5.1); Protein, Total 7.2 g/dL (6.4-8.2); Sodium Level 137 mmol/L (136-145)
== END | disposition home or self-care (01) ==
LOC: LABSPEC 10:03
PROVIDERS: PCP Family Medicine; Visit Provider Internal Medicine Rheumatology
DX: M06.00 Rheumatoid arthritis without rheumatoid factor, unspecified site (principal); M21.40 Flat foot [pes planus] (acquired), unspecified foot; M47.892 Other spondylosis, cervical region; I10 Essential (primary) hypertension; Z79.899 Other long term (current) drug therapy
CPT/HCPCS: 80053; 85025

== ENCOUNTER → 2022-05-25 | Outpatient (CLI) | payer OTHER, SELFPAY ==
[2022-05-25 12:24] LABS: Absolute Lymphocyte Count 1.49 X10^3/uL (0.83-4.51); Absolute Neutrophil Count 3.1 X10^3/uL (2.0-7.7); Basophil# 0.07 X10^3/uL; Basophil% 1.3 % (0-1); Eosinophil# 0.15 X10^3/uL; Eosinophils% 2.7 % (0-5); Hematocrit 36.8 % (40-54); Hemoglobin 12.8 g/dL (13.0-16.5); Lymphocyte # 1.49 X10^3/ul (0.83-4.51); Lymphocyte % 26.9 % (19-41); Mean Corp Hgb Conc 34.8 g/dL (32-36); Mean Corpuscular Hgb 37.6 pg (27.0-32.0); Mean Corpuscular Volume 108.2 fL (80-94); Mean Platelet Vol. 9.9 fl (6.2-12.0); Monocyte# 0.74 X10^3/uL; Monocyte% 13.4 % (0-10); NRBC Flagged by Analyzer 0 % (0-5); Neutrophil # 3.06 X10^3/uL (2.7-7.7); Neutrophil % 55.3 % (47-70); Platelet Count 273 K/mm3 (150-450); RBC Distribution Width CV 16.1 % (11.6-14.6); RBC Distribution Width SD 63.2 fl (35.1-43.9); White Blood Count 5.5 K/mm3 (4.4-11.0)
[2022-05-25 13:27] LABS: AST(SGOT) 20 U/L (15-37); Alanine Aminotransfer ALT/SGPT 24 U/L (16-61); Albumin, Serum 3.8 g/dL (3.2-5.0); Alkaline Phosphatase 68 U/L (45-117); Anion Gap 4 (5-15); BUN 9 mg/dL (7-18); BUN/Creat Ratio 11.1 RATIO (10-20); Calcium,Total 9.3 mg/dL (8.5-10.1); Chloride 107 mmol/L (98-107); Creatinine, Serum 0.81 mg/dL (0.70-1.30); EST Glomerular Filtration Rate 102 mL/min (>60); Est Glom Filt Rate - Afr Amer 123 mL/min (>60); Globulin 3.9 g/dL (2.2-4.2); Glucose 89 mg/dL (74-106); Potassium 3.9 mmol/L (3.5-5.1); Protein, Total 7.7 g/dL (6.4-8.2); Sodium Level 139 mmol/L (136-145)
== END | disposition home or self-care (01) ==
LOC: LABSPEC 12:15
PROVIDERS: PCP Family Medicine; Visit Provider Internal Medicine Rheumatology
DX: M06.00 Rheumatoid arthritis without rheumatoid factor, unspecified site (principal); M21.40 Flat foot [pes planus] (acquired), unspecified foot; M47.892 Other spondylosis, cervical region; I10 Essential (primary) hypertension; Z79.899 Other long term (current) drug therapy
CPT/HCPCS: 80053; 85025

== ENCOUNTER → 2022-08-18 | Outpatient (CLI) | payer OTHER, SELFPAY ==
[2022-08-18 11:45] LABS: Absolute Lymphocyte Count 1.68 X10^3/uL (0.83-4.51); Basophil# 0.05 X10^3/uL; Basophil% 0.9 % (0-1); Eosinophil# 0.13 X10^3/uL; Eosinophils% 2.3 % (0-5); Hematocrit 39.7 % (40-54); Hemoglobin 13.6 g/dL (13.0-16.5); Lymphocyte # 1.68 X10^3/ul (0.83-4.51); Lymphocyte % 30.1 % (19-41); Mean Corp Hgb Conc 34.3 g/dL (32-36); Mean Corpuscular Hgb 37.4 pg (27.0-32.0); Mean Corpuscular Volume 109.1 fL (80-94); Mean Platelet Vol. 10.2 fl (6.2-12.0); Monocyte# 0.69 X10^3/uL; Monocyte% 12.4 % (0-10); NRBC Flagged by Analyzer 0 % (0-5); Neutrophil # 3.01 X10^3/uL (2.7-7.7); Neutrophil % 53.9 % (47-70); Platelet Count 244 K/mm3 (150-450); RBC Distribution Width CV 14.7 % (11.6-14.6); RBC Distribution Width SD 58.4 fl (35.1-43.9); Red Blood Count 3.64 M/mm3 (4.6-6.2); White Blood Count 5.6 K/mm3 (4.4-11.0)
[2022-08-18 11:56] LABS: AST(SGOT) 15 U/L (15-37); Alanine Aminotransfer ALT/SGPT 19 U/L (16-61); Albumin, Serum 3.8 g/dL (3.2-5.0); Alkaline Phosphatase 60 U/L (45-117); Anion Gap 7 (5-15); BUN 13 mg/dL (7-18); BUN/Creat Ratio 15.6 RATIO (10-20); Chloride 104 mmol/L (98-107); Creatinine, Serum 0.83 mg/dL (0.70-1.30); EST Glomerular Filtration Rate 99 mL/min (>60); Est Glom Filt Rate - Afr Amer 119 mL/min (>60); Globulin 3.9 g/dL (2.2-4.2); Glucose 84 mg/dL (74-106); Potassium 3.7 mmol/L (3.5-5.1); Protein, Total 7.7 g/dL (6.4-8.2); Sodium Level 140 mmol/L (136-145)
== END | disposition home or self-care (01) ==
LOC: LABSPEC 11:27
PROVIDERS: PCP Family Medicine; Referring Provider Internal Medicine Rheumatology; Visit Provider Internal Medicine Rheumatology
DX: M06.00 Rheumatoid arthritis without rheumatoid factor, unspecified site (principal); Z79.899 Other long term (current) drug therapy
CPT/HCPCS: 80053; 85025

== ENCOUNTER → 2022-11-11 | Outpatient (CLI) | payer OTHER, SELFPAY ==
[2022-11-11 12:05] LABS: Absolute Lymphocyte Count 1.63 X10^3/uL (0.83-4.51); Absolute Neutrophil Count 4.7 X10^3/uL (2.0-7.7); Basophil# 0.03 X10^3/uL; Basophil% 0.4 % (0-1); Eosinophils% 1.4 % (0-5); Hematocrit 38.5 % (40-54); Hemoglobin 13.4 g/dL (13.0-16.5); Lymphocyte # 1.63 X10^3/ul (0.83-4.51); Lymphocyte % 23.2 % (19-41); Mean Corp Hgb Conc 34.8 g/dL (32-36); Mean Corpuscular Hgb 37.1 pg (27.0-32.0); Mean Corpuscular Volume 106.6 fL (80-94); Monocyte# 0.59 X10^3/uL; Monocyte% 8.4 % (0-10); NRBC Flagged by Analyzer 0 % (0-5); Neutrophil # 4.65 X10^3/uL (2.7-7.7); Neutrophil % 66.3 % (47-70); Platelet Count 225 K/mm3 (150-450); RBC Distribution Width CV 15.6 % (11.6-14.6); RBC Distribution Width SD 60.1 fl (35.1-43.9); Red Blood Count 3.61 M/mm3 (4.6-6.2)
[2022-11-11 12:26] LABS: AST(SGOT) 27 U/L (15-37); Alanine Aminotransfer ALT/SGPT 34 U/L (16-61); Albumin, Serum 3.9 g/dL (3.2-5.0); Alkaline Phosphatase 65 U/L (45-117); Anion Gap 1 (5-15); BUN 11 mg/dL (7-18); BUN/Creat Ratio 15.3 RATIO (10-20); Chloride 104 mmol/L (98-107); Creatinine, Serum 0.72 mg/dL (0.70-1.30); EST Glomerular Filtration Rate 117 mL/min (>60); Est Glom Filt Rate - Afr Amer 141 mL/min (>60); Globulin 3.9 g/dL (2.2-4.2); Glucose 88 mg/dL (74-106); Potassium 3.7 mmol/L (3.5-5.1); Protein, Total 7.8 g/dL (6.4-8.2); Sodium Level 134 mmol/L (136-145)
== END | disposition home or self-care (01) ==
LOC: LABSPEC 11:46
PROVIDERS: PCP Family Medicine; Referring Provider Internal Medicine Rheumatology; Visit Provider Internal Medicine Rheumatology
DX: M06.00 Rheumatoid arthritis without rheumatoid factor, unspecified site (principal); Z79.899 Other long term (current) drug therapy
CPT/HCPCS: 80053; 85025

== ENCOUNTER → 2023-02-07 | Outpatient (CLI) | payer OTHER, SELFPAY ==
[2023-02-07 12:54] LABS: Absolute Lymphocyte Count 1.51 X10^3/uL (0.83-4.51); Absolute Neutrophil Count 3.4 X10^3/uL (2.0-7.7); Basophil# 0.06 X10^3/uL; Basophil% 1.1 % (0-1); Eosinophil# 0.05 X10^3/uL; Eosinophils% 0.9 % (0-5); Hematocrit 42.6 % (40-54); Hemoglobin 14.7 g/dL (13.0-16.5); Lymphocyte # 1.51 X10^3/ul (0.83-4.51); Lymphocyte % 26.7 % (19-41); Mean Corp Hgb Conc 34.5 g/dL (32-36); Mean Corpuscular Hgb 37.6 pg (27.0-32.0); Mean Platelet Vol. 10.2 fl (6.2-12.0); Monocyte# 0.59 X10^3/uL; Monocyte% 10.4 % (0-10); NRBC Flagged by Analyzer 0 % (0-5); Neutrophil # 3.44 X10^3/uL (2.7-7.7); Neutrophil % 60.7 % (47-70); Platelet Count 281 K/mm3 (150-450); RBC Distribution Width SD 55.8 fl (35.1-43.9); Red Blood Count 3.91 M/mm3 (4.6-6.2); White Blood Count 5.7 K/mm3 (4.4-11.0)
[2023-02-07 13:39] LABS: AST(SGOT) 19 U/L (15-37); Alanine Aminotransfer ALT/SGPT 17 U/L (16-61); Albumin, Serum 3.8 g/dL (3.2-5.0); Alkaline Phosphatase 67 U/L (45-117); Anion Gap 6 (5-15); BUN 9 mg/dL (7-18); BUN/Creat Ratio 10.6 RATIO (10-20); Calcium,Total 9.2 mg/dL (8.5-10.1); Chloride 104 mmol/L (98-107); Creatinine, Serum 0.85 mg/dL (0.70-1.30); EST Glomerular Filtration Rate 96 mL/min (>60); Est Glom Filt Rate - Afr Amer 117 mL/min (>60); Globulin 3.8 g/dL (2.2-4.2); Glucose 144 mg/dL (74-106); Potassium 3.8 mmol/L (3.5-5.1); Protein, Total 7.6 g/dL (6.4-8.2); Sodium Level 136 mmol/L (136-145)
== END | disposition home or self-care (01) ==
LOC: LABSPEC 11:58
PROVIDERS: PCP Family Medicine; Referring Provider Internal Medicine Rheumatology; Visit Provider Internal Medicine Rheumatology
DX: M06.00 Rheumatoid arthritis without rheumatoid factor, unspecified site (principal); Z79.899 Other long term (current) drug therapy
CPT/HCPCS: 80053; 85025

== ENCOUNTER → 2023-02-17 | Outpatient (CLI) | payer OTHER, SELFPAY ==
--- NOTE | 2023-02-17 13:21 | CT_ITS ---
STUDY: LOW DOSE CT LUNG CANCER SCREENING REASON FOR EXAM: Male, 62 years old. LUNG SCREEN. Patient smokes 1 pack per day for 45 years. RADIATION DOSAGE (If Supplied By Facility): CTDIvol = ( 2.01 ) mGy, DLP = ( 75.75 ) mGycm TECHNIQUE: No contrast was administered. Low dose technique was utilized (average mAS-38 and kVp 120). 1.25 mm axial source images with a slice interval of 1.25-mm were reconstructed in lung windows. 2.5 mm axial source images with a slice interval of 2.5-mm were reconstructed in lung windows. 5.0 mm axial source images with a slice interval of 5.0-mm were reconstructed in soft tissue windows. COMPARISON: Comparison is made with prior study of December 10, 2021. NODULES: No suspicious nodules are seen. Emphysema: Minimal degree of linear scarring at the lung bases. Endobronchial lesion: None Aorta: Atherosclerotic calcific plaques. CORONARY ARTERIES: Coronary artery calcification is seen. Heart: Unremarkable. Pulmonary artery: Unremarkable. Mediastinal nodes: Small mediastinal lymph nodes. Other chest and abdominal findings: CT/Low Dose CT Lung Screening IMPRESSION: Lung-RADS category 2 - Continue annual screening with LDCT in 12 months. IMPORTANT NOTES FOR USE: ACR Lung-RADS Version 1.1 Assessment Categories Release Date: 2018 Category: Coded 0-4 bases on nodule(s) with highest degree of suspicion. Negative screen is defined as categories 1 and 2; a positive screen is defined as categories 3 and 4. Category 3 and 4A nodules that are unchanged on interval CT should be coded as category 2, and individuals returned to screening in 12 months. Category 4X: Category 3 or 4 nodules with additional imaging findings that increase the suspicion of lung cancer, such as spiculation, GGN that doubles in size in 1 year, enlarged lymph notes, etc. Category Modifiers: S (significant finding unrelated to lung cancer) Electronically Signed: John Hernandez MD at 14:48 EDT ,
== END | disposition home or self-care (01) ==
LOC: CT 13:20
PROVIDERS: PCP Family Medicine; Referring Provider Nurse Practitioner Family; Visit Provider Nurse Practitioner Family
DX: Z12.2 Encounter for screening for malignant neoplasm of respiratory organs (principal); F17.200 Nicotine dependence, unspecified, uncomplicated
CPT/HCPCS: 71271

== ENCOUNTER → 2023-05-11 | Outpatient (CLI) | payer OTHER, SELFPAY ==
[2023-05-11 11:29] LABS: Absolute Lymphocyte Count 1.44 X10^3/uL (0.83-4.51); Absolute Neutrophil Count 4.2 X10^3/uL (2.0-7.7); Basophil# 0.04 X10^3/uL; Basophil% 0.6 % (0-1); Eosinophil# 0.12 X10^3/uL; Eosinophils% 1.8 % (0-5); Hematocrit 39.5 % (40-54); Hemoglobin 13.2 g/dL (13.0-16.5); Lymphocyte # 1.44 X10^3/ul (0.83-4.51); Mean Corp Hgb Conc 33.4 g/dL (32-36); Mean Corpuscular Hgb 36.8 pg (27.0-32.0); Mean Platelet Vol. 9.9 fl (6.2-12.0); Monocyte# 0.73 X10^3/uL; Monocyte% 11.1 % (0-10); NRBC Flagged by Analyzer 0 % (0-5); Neutrophil # 4.21 X10^3/uL (2.7-7.7); Neutrophil % 64.2 % (47-70); Platelet Count 235 K/mm3 (150-450); RBC Distribution Width CV 15.7 % (11.6-14.6); RBC Distribution Width SD 62.8 fl (35.1-43.9); Red Blood Count 3.59 M/mm3 (4.6-6.2); White Blood Count 6.6 K/mm3 (4.4-11.0)
[2023-05-11 11:57] LABS: ALB/GLOB Ratio 0.9 RATIO (0.9-2.4); AST(SGOT) 23 U/L (15-37); Alanine Aminotransfer ALT/SGPT 28 U/L (16-61); Albumin, Serum 3.5 g/dL (3.2-5.0); Alkaline Phosphatase 56 U/L (45-117); Anion Gap 3 (5-15); BUN 14 mg/dL (7-18); BUN/Creat Ratio 18.1 RATIO (10-20); Chloride 108 mmol/L (98-107); Creatinine, Serum 0.77 mg/dL (0.70-1.30); EST Glomerular Filtration Rate 107 mL/min (>60); Est Glom Filt Rate - Afr Amer 130 mL/min (>60); Globulin 3.8 g/dL (2.2-4.2); Glucose 87 mg/dL (74-106); Potassium 4.1 mmol/L (3.5-5.1); Protein, Total 7.3 g/dL (6.4-8.2); Sodium Level 140 mmol/L (136-145)
== END | disposition home or self-care (01) ==
PROVIDERS: PCP Family Medicine; Referring Provider Internal Medicine Rheumatology; Visit Provider Internal Medicine Rheumatology
DX: M06.00 Rheumatoid arthritis without rheumatoid factor, unspecified site (principal); M21.40 Flat foot [pes planus] (acquired), unspecified foot; M47.892 Other spondylosis, cervical region; I10 Essential (primary) hypertension; Z79.899 Other long term (current) drug therapy
CPT/HCPCS: 80053; 85025

== ENCOUNTER → 2023-07-28 | Outpatient (CLI) | payer OTHER, SELFPAY ==
[2023-07-28 12:15] LABS: ALB/GLOB Ratio 0.9 RATIO (0.9-2.4); AST(SGOT) 19 U/L (15-37); Alanine Aminotransfer ALT/SGPT 17 U/L (16-61); Albumin, Serum 3.7 g/dL (3.2-5.0); Alkaline Phosphatase 72 U/L (45-117); Anion Gap 6 (5-15); BUN 11 mg/dL (7-18); BUN/Creat Ratio 13.4 RATIO (10-20); Calcium,Total 9.1 mg/dL (8.5-10.1); Chloride 104 mmol/L (98-107); Creatinine, Serum 0.82 mg/dL (0.70-1.30); EST Glomerular Filtration Rate 100 mL/min (>60); Est Glom Filt Rate - Afr Amer 121 mL/min (>60); Globulin 4.2 g/dL (2.2-4.2); Glucose 96 mg/dL (74-106); Protein, Total 7.9 g/dL (6.4-8.2); Sodium Level 135 mmol/L (136-145)
[2023-07-28 12:16] LABS: Absolute Lymphocyte Count 1.14 X10^3/uL (0.83-4.51); Absolute Neutrophil Count 6.8 X10^3/uL (2.0-7.7); Basophil# 0.04 X10^3/uL; Basophil% 0.5 % (0-1); Eosinophil# 0.06 X10^3/uL; Eosinophils% 0.7 % (0-5); Hematocrit 44.3 % (40-54); Hemoglobin 14.8 g/dL (13.0-16.5); Lymphocyte # 1.14 X10^3/ul (0.83-4.51); Lymphocyte % 12.9 % (19-41); Mean Corp Hgb Conc 33.4 g/dL (32-36); Mean Corpuscular Hgb 36.2 pg (27.0-32.0); Mean Corpuscular Volume 108.3 fL (80-94); Mean Platelet Vol. 9.9 fl (6.2-12.0); Monocyte# 0.69 X10^3/uL; Monocyte% 7.8 % (0-10); NRBC Flagged by Analyzer 0 % (0-5); Neutrophil # 6.84 X10^3/uL (2.7-7.7); Neutrophil % 77.6 % (47-70); Platelet Count 261 K/mm3 (150-450); RBC Distribution Width CV 14.4 % (11.6-14.6); Red Blood Count 4.09 M/mm3 (4.6-6.2); White Blood Count 8.8 K/mm3 (4.4-11.0)
--- OUTSIDE RECORDS SUMMARY | 2023-07-28 12:40 | XMS RPT_ITS | CCD ---
Author Name Unknown Address [address] [place] [address] Organization [facility] Care Team Providers Care Machining Manager Name Role Phone DINESH WHARTON Attending Unavailable YAYO BOYKIN Primary Care Unavailable DINESH WHARTON Attending Unavailable YAYO BOYKIN Primary Care Unavailable DINESH WHARTON Attending Unavailable YAYO BOYKIN Primary Care Unavailable DINESH WHARTON Attending Unavailable YAYO BOYKIN Primary Care Unavailable DINESH WHARTON Attending Unavailable YAYO BOYKIN Primary Care Unavailable Meño GREGG, Michael Cheng Primary Care Provider Yayo Boykin Primary Care Provider None, No PCP Unavailable Unavailable Unavailable Unavailable Yayo Boykin Unavailable Joleen, Dr. Blessing Ovalles Referring U navailable Maronian, Dr. Blessing Ovalles Attending U navailable Maroniadionne, Dr. Blessing Ovalles Admitting U Yayo Rodriguez Primary Care Unavailable Joleen, Blessing Attending Unavailable Ashutosh, Dr. Yayo Jones Primary Care Unavail able Ashutosh, Dr. Yayo Jones Primary Care Unavail able Geovannaonian, Blessing Attending Unavailable Ashutosh, Dr. Yayo Jones Primary Care Unavail able Geovannaonian, Blessing Attending Unavailable Geovannaonian, Blessing Referring Unavailable UNKNOWN, PCP Primary Care Unavailable Geovannaonian, Blessing Attending Unavailable Ashutosh, Dr. Yayo Jones Primary Care Unavail able Marvenkatn, Blessing Referring Unavailable Maronian, Blessing Attending Unavailable Maronian, Blessing Referring Unavailable Ashutosh, Dr. Yayo Jones Primary Care Unavail able Maronian, Blessing Attending Unavailable Maronian, Blessing Referring Unavailable Maronian, Blessing Attending Unavailable Ashutosh, Dr. Yayo Jones Primary Care Unavail able Maronian, Blessing Referring Unavailable Maronian, Blessing Attending Unavailable Dr. Yayo Boykin Primary Care Unavail able Dr. Yayo Boykin Primary Care Unavail able Blessing Goodrich Attending Unavailable Allergies Allergy Classification Reported Allergen(s) Allergy Type Date of Onset Reaction(s) Facility Penicillins (antibiotic) (1 source) Penicillins Drug Allergy 09-16-[address] [facility] Sulfonamides (antibiotic) (1 source) Sulfonamides (Antibiotic) Drug Allergy 09-16-[address] [facility] (11 sources) Penicillins; Translations: [Penicillins] Allergy to drug (finding) [facility] [place] [address] Work Phone: (11 sources) Sulfamethoxazole; Translations: [sulfa] Drug Allergy [facility] [email or web address] Work Phone: Medications Completed/Discontinued Medications Medication Drug Class(es) Dates Sig (Normalized) Sig (Original) 0.4 ml adalimumab 100 mg/ml auto-injector (17 sources) Tumor Necrosis Factor Bobbi Start: 06-24-2022 Humira Pen 40 MG/0.4ML Subcutaneous Pen-injector Kit Quantity: 2 Refills: 0 Ordered: 24-Jun-2022 DO Start : 24-Jun-2022 Active Problems Active Problems Problem Classification Problem Date Documented Da te Episodic/Chronic Essential hypertension (1 source) Hypertensive disorder; Translations: [Essential (primary) hypertension] Onset: 11-01-2010 07-05-2012 Chronic Nutritional deficiencies (1 source) Vitamin D deficiency; Translations: [Vitamin D deficiency, unspecified] 05-12-2014 Chronic Occlusion or stenosis of precerebral arteries (5 sources) Bilateral carotid artery occlusion; Translations: [Occlusion and stenosis of carotid artery without mention of cerebral infarction] Onset: 09-12-2022 Chronic Other congenital anomalies (1 source) Congenital pes planus; Translations: [Congenital pes planus, unspecified foot] Onset: 10-15-2010 07-05-2011 Chronic Other upper respiratory disease (13 sources) Paralysis of vocal cords and larynx, unilateral; Translations: [Paresis of right vocal cord] Onset: 07-11-2022 Chronic Other upper respiratory disease (11 sources) Disorder of vocal cord; Translations: [Other diseases of vocal cords] Episodic Other upper respiratory disease (11 sources) Hoarse; Translations: [Dysphonia] Episodic Other upper respiratory disease (2 sources) Dysphonia; Translations: [Dysphonia] Onset: 07-11-2022 Episodic Residual codes; unclassified (1 source) Tobacco user; Translations: [Tobacco use] 07-05-2012 Episodic Rheumatoid arthritis and related disease (1 source) Rheumatoid arthritis, unspecified; Translations: [Rheumatoid arthritis] 07-05-2012 Chronic Past or Other Problems Problem Classification Problem Date Documented Da te Episodic/Chronic Lymphadenitis (1 source) Lymphadenopathy; Translations: [Enlarged lymph nodes, unspecified] Onset: 09-22-2010 07-05-2011 Episodic Other and unspecified benign neoplasm (1 source) Benign neoplasm of rectum and anal canal; Translations: [Benign neoplasm of rectum] Onset: 05-06-2011 07-05-2011 Episodic Thyroid disorders (8 sources) Mass of thyroid gland; Translations: [Neoplasm of unspecified nature of endocrine glands and other parts of nervous system] Onset: 09-12-2022 Episodic Results Test Name Value Interpretation Reference Range Facil ity Vital Signs Date Time Vital Sign Value Performing Clinician Faci lity 09-12-2022 09:47-0500 Body height 172.72 cm Yayo Zee [employer] Work Phone: [employer] Work Phone: 09-12-2022 09:47-0500 Body mass index (BMI) [Ratio] 20.28 kg/m2 Yayo Zee [employer] Work Phone: [employer] Work Phone: 09-12-2022 09:47-0500 Body surface area Derived from formula 1.72 m2 Yayo Zee [employer] Work Phone: [employer] Work Phone: 09-12-2022 09:47-0500 Body temperature 98.6 [degF] Yayo Zee [employer] Work Phone: [employer] Work Phone: 02-20-2023 09:47-0500 Body weight 60.51 kg Yayo Zee Ashutosh Work Phone: [facility] Work Phone: 07-11-2022 10:36-0500 Body height 172.72 cm Yayo Krishnamurthynan Work Phone: [facility] Work Phone: 07-11-2022 10:36-0500 Body mass index (BMI) [Ratio] 20.59 kg/m2 Yayo Zee Ashutosh Work Phone: [facility] Work Phone: 07-11-2022 10:36-0500 Body surface area Derived from formula 1.73 m2 Yayo Zee Ashutosh Work Phone: [facility] 4106 Work Phone: 07-11-2022 10:36-0500 Body temperature 97.4 [degF] Yayo Zee Ashutosh Work Phone: [facility] Work Phone: 07-11-2022 10:36-0500 Body weight 61.44 kg Yayo Zee Ashutosh Work Phone: [facility] 4[facility] Work Phone: 03-07-2022 10:49-0400 Body height 172.72 cm Yayo Krishnamurthynan Work Phone: [facility] Work Phone: 03-07-2022 10:49-0400 Body mass index (BMI) [Ratio] 20.07 kg/m2 Yayo Boykin Work Phone: [facility] Work Phone: 03-07-2022 10:49-0400 Body surface area Derived from formula 1.71 m2 Yayo Boykin Work Phone: [facility] Work Phone: 03-07-2022 10:49-0400 Body weight 59.88 kg Yayo Boykin Work Phone: [facility] Work Phone: 02-01-2022 11:55-0400 Body height 172.72 cm No PCP None [facility] Work Phone: 02-01-2022 11:55-0400 Body mass index (BMI) [Ratio] 20.33 kg/m2 No PCP None [facility] Work Phone: 02-01-2022 11:55-0400 Body surface area Derived from formula 1.72 m2 No PCP None [facility] Work Phone: 02-01-2022 11:55-0400 Body temperature 97.1 [degF] No PCP None [facility] Work Phone: 02-01-2022 11:55-0400 Body weight 60.65 kg No PCP None [facility] Work Phone: Encounters Encounter Date Encounter Type Care Provider Facility Start: 09-28-2022 Chart Update Yayo Boykin Work Phone: XR-Tfaxeevtyjwntf-Npj [facility] Work Phone: Start: 09-12-2022 Patient encounter procedure Yayo Boykin Work Phone: LZ-Awkqywyjjoihkf-Dzl [facility] Work Phone: Start: 09-12-[address] Yayo Boykin Facility:[id number] Start: 09-12-2022 ambulatory Blessing Marayde Facilit y:[id number] Start: 07-21-2022 Chart Update Yayo Boykin Work Phone: TT-Znlmmuzoveerrp-Fpc dman [facility] Work Phone: Start: 07-11-2022 Patient encounter procedure Yayo Boykin Work Phone: [facility] Work Phone: Start: 07-11-2022 ambulatory Blessing Goodrich Facilit y:[id number] Start: 07-11-[address] Blessing Goodrich [place] Start: 05-03-2022 Office outpatient vi sit 15 minutes Yayo Boykin Work Phone: [facility] 9449 Work Phone: Start: 05-03-2022 ambulatory Blessing Goodrich Facilit y:[id number] Start: 03-07-[address] Yayo Boykin Facility:[id number] Start: 03-07-2022 Patient encounter procedure Yayo Boykin Work Phone: CW-Qzwtxrvyqpqqlv-Ymg dman [facility] Work Phone: Start: 03-07-[address] Yayo Boykin Facility:[id number] Start: 02-01-[address] Yayo Boykin Facility:[id number] Start: 02-01-2022 Patient encounter procedure No PCP None [facility] Work Phone: Start: 02-01-2022 ambulatory Blessing Marvenkatn Facilit y:[id number] Start: 10-30-2018 End: 10-31-2018 Patient encounter procedure DINESH VELJUDI Facility:B Start: 08-01-2018 End: 08-02-2018 Patient encounter procedure DINESH VELJUDI Facility:B Start: 04-27-2018 End: 04-28-2018 Patient encounter procedure DINESH VELLANKI Facility:B Start: 01-31-2018 End: 02-01-2018 Patient encounter procedure DINESH WHARTON Facility:[facility] Start: 11-02-2017 End: 11-03-2017 Patient encounter procedure DINESH WHARTON Facility:[facility] Start: 03-07-2016 End: 03-07-2016 Telephone encounter Khari Izquierdo MD Work Phone: Internal Medicine [place] Procedures Date Procedure Procedure Detail Performing Clinician Start: 06-27-2016 Colonoscopy Khari morejon MD Work Phone: Plan of Treatment Date Care Activity Detail Author Start: 09-12-2022 FUV, Provider: Blessing Goodrich, Status: Pen, Time: 10:00 AM FUV, Provider: Blessing Goodrich, Status: Pen, Time: 10:00 AM [facility] Work Phone: Start: 07-11-2022 FUV, Provider: Blessing Goodrich, Status: Pen, Time: 10:00 AM FUV, Provider: Blessing Goodrich, Status: Pen, Time: 10:00 AM TD-Thjtjmcigqfsts-Dkb dman Voice Work Phone: Start: 07-05-2022 Urine microalbumin profile DTAP,TDAP,TD (2 - Td or Tdap) [facility] Start: 05-03-2022 VIRFUVHOME, Provider : Blessing Goodrich, Status: Pen, Time: 9:15 AM VIRFUVHOME, Provider: Blessing Goodrich, Status: Pen, Time: 9:15 AM ZU-Syxaywohleaetz-Blp dman [facility] Work Phone: Start: 03-07-2022 MSO, Provider: Blessing Goodrich, Status: Pen, Time: 10:45 AM MSO, Provider: Blessing Goodrich, Status: Pen, Time: 10:45 AM [facility] Work Phone: Start: 06-27-2021 Screening for malign ant neoplasm of colon [facility] Start: 03-24-2021 Influenza vaccination INFLUENZ A (Season Ended) [facility] Start: 09-18-2019 LIPID SCREEN LIPID SCREEN [facility] Start: 09-13-2018 PROSTATE CANCER SCRE ENING DISCUSSION PROSTATE CANCER SCREENING DISCUSSION [facility] Start: 09-27-2015 DIABETES SCREEN DIABETES SCREEN [facility] Start: 2008 Screening for malign ant neoplasm of colon [facility] Start: 2008 SHINGRIX VACCINE (1 of 2) MOTA GRIX VACCINE (1 of 2) [facility] Start: 1976 HIV SCREENING HIV SCREENING [facility] Start: 1970 Adult depression screening assessment DEPRESSION SCREENING [facility] Immunizations Immunization Date Immunization Notes Care Provider Fa ciliyosi 07-04-2022 Moderna COVID-19 Biv al Booster 50 MCG/0.5ML Intramuscular Suspension Yayo Boykin Work Phone: ES-Zrdmrtlcgpkhvg-G e[facility] Work Phone: 12-02-2021 Moderna COVID-19 Vac cine 100 MCG/0.5ML Intramuscular Suspension Yayo Boykin Work Phone: UE-Uteawypxaqzuwx-Q e[facility] Work Phone: 04-15-2021 Moderna COVID-19 Vac cine 100 MCG/0.5ML Intramuscular Suspension Yayo Boykin Work Phone: MB-Jocibuzrcnvqcs-X [facility] Work Phone: 03-31-2021 influenza, injectabl e, quadrivalent, preservative free Yayo Boyikn Work Phone: OU-Jftjhhwwoagdjc-H [facility] Work Phone: 11-12-2020 Moderna COVID-19 Vac cine 100 MCG/0.5ML Intramuscular Suspension Yayo Boykin Work Phone: DB-Qfdmezacgzigze-D [facility] Work Phone: 10-15-2020 Moderna COVID-19 Vac cine 100 MCG/0.5ML Intramuscular Suspension Yayo Boykin Work Phone: TU-Pgadaptgnvyiep-P [facility] Work Phone: 04-23-2014 influenza, seasonal, injectable Yayo Krishnamurthynan Work Phone: OQ-Skawicrwmxiiwj-E [facility] Work Phone: 07-05-2012 pneumococcal polysaccharide vaccine, 23 valent Khari Izquierdo MD Work Phone: [facility] 07-05-2012 tetanus toxoid, redu giuseppe diphtheria toxoid, and acellular pertussis vaccine, adsorbed Khari Izquierdo MD Work Phone: [facility] 04-24-2012 influenza virus vacc ine, unspecified formulation Khari Izquierdo MD Work Phone: [facility] 04-23-2010 influenza virus vacc ine, unspecified formulation Khari Izquierdo MD Work Phone: [facility] 10-16-2001 tetanus and diphther ia toxoids, adsorbed, preservative free, for adult use (5 Lf of tetanus toxoid and 2 Lf of diphtheria toxoid) Yayo Boykin Work Phone: JB-Uxiufiazgdpzlm-F eiShidonnian Voice Work Phone: 10-16-2001 tetanus and diphther ia toxoids, not adsorbed, for adult use Khari Izquierdo MD Work Phone: [facility] Payers Date Payer Category Payer Unknown [id number] 2017 Self-pay 2017 Unknown [id number] 1963 Unknown [id number] 1963 Unknown [id number] 1963 Unknown [id number] 1963 Unknown [id number] 1963 Unknown [id number] 1958 Unknown [id number] 1958 Unknown [id number] 1958 Unknown [id number] 1958 Unknown [id number] [id number] 1958 Unknown [id number] [id number] 1958 Unknown [id number] 1958 Unknown [id number] 1958 Unknown [id number] 1958 Unknown [id number] 1958 Unknown [id number] Unknown [facility] Unknown [id number] Social History Date Type Detail Facility Start: 11-18-2014 Tobacco smoking stat us WYIS Current every day smoker [facility] History of tobacco use Cigarette Smoker C [facility] Work Phone: Start: 11-18-2014 Cigarettes smoked current (pack per day) - Reported [facility] Start: 11-18-2014 Alcohol intake Current drinke r of alcohol (finding) [facility] Start: 11-18-2014 Tobacco Comment started smokin g 13yo, usually 1PPD [facility] Start: 1960 Sex Assigned At Not on file C [facility] Clinical Notes 05-06-2011 to 05-03-2022 Telephone Encounter - Paige Galeano - 03/15/2016 3:46 PM EDTTelephone Encounter - Dillard, Kara ANTONIO - 03/07/2016 3:23 PM EDT Note Date & Type Note Facility 05-03-2022 Chief complaint Narrative - Reported An interactive audio and video telecommunication system which permits real time communications between the patient (at the originating site) and provider (at the distant site) was utilized to provide this telehealth service.Verbal consent was requested and obtained from JEFF PORRAS on this date, 05/03/2022 09:15 AM , for a telehealth visit.[facility] Work Phone: 05-03-2022 Chief complaint Narrative - Reported An interactive audio and video telecommunication system which permits real time communications between the patient (at the originating site) and provider (at the distant site) was utilized to provide this telehealth service.Verbal consent was requested and obtained from JEFF PORRAS on this date, 05/03/2022 09:15 AM , for a telehealth visit.[facility]Usb[facility] Work Phone: 03-07-2022 Note Plan of Care Continue Current Plan of Care Monitor home program. Patient instructed to call if problems. Patient to follow up with physician in 6-8 weeks. Discussed plan of care with: patient, caregiver/family and physician Patient/caregiver agreeable with plan of care. Assessment Office based right vocal cord injection with Restylane performed this date by Dr. Goodrich and assisted by clinician. Patient did well with procedure. Clinician reviewed instructions from initial visit includin. vocal wellness strategies to limit cough/throat clear and phono trauma 2. compensatory swallow techniques to reduce risk of penetration/aspiration Model provided and accurate follow through confirmed. Voice: level 3 initial Adult Risk Screening There are no spiritual/cultural practices/values/needs that are important to know Initial Fall Risk Screening: JEFF has not fallen in the last 6 months. JEFF does not have a fear of falling. He does not need assistance with sitting, standing or walking. Does not need assistance walking in his home. He does not need assistance in an unfamiliar setting. The patient is not using an assistive device. Pain Scale: On a scale of 0 to 10, the patient rates the pain at 0. Kay Learner(s) are identified by the patient as person(s) most likely to participate in providing care, such as managing medications or taking them to doctors? appointments. Primary Language for learning: Georgian. Insurance Insurance reviewed Visit number: [id number] Onset Date: 2021 Subjective Living Environment: home - patient lives with spouse. Patient arrival: accompanied by spouse Patient alert and ready to proceed with a right vocal cord injection for vocal cord weakness and glottic insufficiency. Objective Progress to date: penitentiary goals: Improve overall vocal health to foster increased participation levels at home, work and in the community environment. Short term goals: Patient will increase vocal wellness and decrease phono trauma in adherence with clinician prescribed vocal hygiene and wellness program per patient report 80% of his/her day. Treatment Total time in clinic is 25 minutes. Provided to: patient and family Response to education: verbalized understanding and demonstrated understanding Patient/caregiver verbalized understanding and agreement: yes Limited Codes ([facility] Only): [id number] Speech language treatment limited. 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 Patient appears to be an excellent candidate for a vocal cord augmentation procedure in conjunction with therapy which will target post procedure vocal wellness and voice rebalancing PRN.Voice quality based on the GRBAS scale: 0=absent; 1=mild; 2=moderate; 3=severeGrade: 2-3Roughness: 2-3Breathiness: 2-3Asthenia: 2-3Strain: 0Contributing Factors: inadequate breath support , decreased neuromuscular control of speech/swallow muscles and abnormal vibratory mechanisms due to physical changesNOMS Score: moderate-severe: level 3Treatment recommendations:Therapy recommended to meet this date with follow up as needed. [facility] [address] [place] Work Phone: 08-24-2021 History of Present illness Narrative JEFF PORRAS is a 61 year male referred to me today by Dr. York. for voice changes. The voice changes started in August 2021 after an episode of an URI. The voice changes started gradually and worsened over time. 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 He has had CT scans of the chest and neck without evidence of malignancy. He denies a high voice demand at work. He has effortful phonation with associated neck pain. He is a current smoker smoking 1 ppd.He has trouble with swallowing liquids.PMH: Arthritis on methotrexate, HTNFHx: reviewed and non-contributory to current complaint.I personally reviewed the patient AEMR notes, and consult notesROS performed. All other systems are reviewed and are negative for complaint and as noted above. [facility] [address] Work Phone: 08-24-2021 History of Present illness Narrative JEFF PORRAS is a 61 year male referred to me by Dr. York for voice changes that started in August 2021 after an episode of an URI.Interval History (01/2022):He presents for a vocal cord injection.No swallowing, breathing, laryngospasm, fever, chills, nausea or vomiting.ROS performed. All other systems are reviewed and are negative for complaint except as noted in HPI. GE-Usivxhzydvziny-Rrgszvl Voice Work Phone: 08-24-2021 History of Present illness Narrative JEFF PORRAS is a 61 year male referred to me by Dr. York. for voice changes. The voice changes started in August 2021 after an episode of an URI.Interval History (01/2022):The patient presents for a follow up for hoarseness s/p vocal cord injection. He underwent two session with Gisella for voice therapy. He had a normal voice for one month initially after the injection. He has noted worsening hoarseness with fatigue.He has intermittent dysphagia.No swallowing, breathing, laryngospasm, fever, chills, nausea or vomiting.ROS performed. All other systems are reviewed and are negative for complaint except as noted in HPI. [facility]am[facility]rvn[facility] 4[address] Work Phone: 08-24-2021 History of Present illness Narrative for voice changes. The voice changes started in August 2021 after an episode of an URI.Interval History (01/2022):The patient presents for a follow up for hoarseness s/p vocal cord injection. He underwent two session with Gisella for voice therapy. He had a normal voice for one month initially after the injection. He has noted worsening hoarseness with fatigue.He has intermittent dysphagia.No swallowing, breathing, laryngospasm, fever, chills, nausea or vomiting.ROS performed. All other systems are reviewed and are negative for complaint except as noted in HPI. JS-Zpjpdyeotwyqjt-Qpuoxvw Voice Work Phone: 08-24-2021 History of Present illness Narrative fu for voice changes. The voice changes started in August 2021 after an episode of an URI.s/p vocal cord injection on 02/2022Interval History (04/2022):He is here for a repeat injection.No swallowing, breathing, laryngospasm, fever, chills, nausea or vomiting.ROS performed. All other systems are reviewed and are negative for complaint except as noted in HPI. [facility]za[facility] Work Phone: 08-24-2021 History of Present illness Narrative fu for voice changes. The voice changes started in August 2021 after an episode of an URI.s/p vocal cord injection on 02/2022Interval History (04/2022):He is here for a repeat injection.No swallowing, breathing, laryngospasm, fever, chills, nausea or vomiting.ROS performed. All other systems are reviewed and are negative for complaint except as noted in HPI. CC-Iabfpbqaguklzu-Djcyyni Voice Work Phone: 08-24-2021 History of Present illness Narrative fu for voice changes. The voice changes started in August 2021 after an episode of an URI.s/p vocal cord injection on 02/2022Interval History (06/2022):He is here s/p vocal cord injection. He reports improvement in voice and swallow. These have been consistent. He has noticed a lower pitch with high voice demand. Very pleased since injection.No swallowing, breathing, laryngospasm, fever, chills, nausea or vomiting.ROS performed. All other systems are reviewed and are negative for complaint except as noted in HPI.I personally reviewed his CT neck form 07/11/22 that shows no masses along the course of the RLN. [facility] Work Phone: 03-15-2016 Miscellaneous Notes Colon Recall Jeff stated he will discuss with his doctor and will call back if he is interested. Patient due for 5 year colonoscopy. Please contact patient to schedule. documented in this encounter [facility] documented as of this encounter (statuses as of 11/19/2020) [facility] Summary Purpose Family History No Family History Records FoundNo Family History Records FoundNo Family History Records FoundNo Family History Records Found Advance Directives No Advanced Directives Records FoundDocuments on File Type Date Recorded Patient Barometers Calibrator Expl anation Advance Directive(s) 06/27/2016 4:09 PM Advance Directive(s) 06/27/2016 1:56 PM Advance Directive(s) 06/22/2016 2:57 PM Chief Complaint VoiceMSOMSOMS[facility] Additional Source Comments (unrecognized sect ion and content) No Status Records FoundNo Status Records FoundNo Status Records FoundNo Status Records Found INFORMATION SOURCE (unrecogn ized section and content) DATE CREATED AUTHOR AUTHOR'S ORGANIZ ATION 07/15/2022 [facility] DATE CREATED AUTHOR AUTHOR'S ORGANIZ ATION 09/13/2022 [employer] DATE CREATED AUTHOR AUTHOR'S ORGANIZ ATION 01/03/2023 [facility] Source Comments (unrecognize d section and content) In the event this informatio n is protected by the Federal Confidentiality of Alcohol and Drug Abuse Patient Records regulations: The Federal rules restrict any use of the information to criminally investigate or prosecute any alcohol or drug abuse patient.[facility] Reason for Visit (unrecogniz ed section and content) FOR RECORDS PERTAINING TO PATIENTS WHO ARE OR HAVE BEEN ENROLLED IN A CHEMICAL DEPENDENCY/SUBSTANCEABUSE PROGRAM, SOME INFORMATION MAY BE OMITTED. This clinical summary was aggregated from multiple sources. Caution should be exercised in using it in the provision of clinical care. This summary normalizes information from multiple sources, and as a consequence, information in this document may materially change the coding, format and clinical context of patient data. In addition, data may be omitted in some cases. CLINICAL DECISIONS SHOULD BE BASED ON THE PRIMARY CLINICAL RECORDS. [employer] [facility]. provides no warranty or guarantee of the accuracy or completeness of information in this document.
== END | disposition home or self-care (01) ==
LOC: LABSPEC 11:39
PROVIDERS: PCP Family Medicine; Referring Provider Internal Medicine Rheumatology; Visit Provider Internal Medicine Rheumatology
DX: M06.00 Rheumatoid arthritis without rheumatoid factor, unspecified site (principal); Z79.899 Other long term (current) drug therapy
CPT/HCPCS: 80053; 85025

== ENCOUNTER → 2023-10-24 | Outpatient (CLI) | payer OTHER, SELFPAY ==
[2023-10-24 11:55] LABS: Absolute Lymphocyte Count 1.67 X10^3/uL (0.83-4.51); Absolute Neutrophil Count 4.2 X10^3/uL (2.0-7.7); Basophil# 0.05 X10^3/uL; Basophil% 0.7 % (0-1); Eosinophil# 0.16 X10^3/uL; Eosinophils% 2.3 % (0-5); Hematocrit 41.4 % (40-54); Hemoglobin 13.6 g/dL (13.0-16.5); Lymphocyte # 1.67 X10^3/ul (0.83-4.51); Lymphocyte % 24.3 % (19-41); Mean Corp Hgb Conc 32.9 g/dL (32-36); Mean Corpuscular Hgb 36.1 pg (27.0-32.0); Mean Corpuscular Volume 109.8 fL (80-94); Mean Platelet Vol. 9.7 fl (6.2-12.0); Monocyte# 0.79 X10^3/uL; Monocyte% 11.5 % (0-10); NRBC Flagged by Analyzer 0 % (0-5); Neutrophil # 4.17 X10^3/uL (2.7-7.7); Neutrophil % 60.9 % (47-70); Platelet Count 258 K/mm3 (150-450); RBC Distribution Width CV 15.3 % (11.6-14.6); RBC Distribution Width SD 60.5 fl (35.1-43.9); Red Blood Count 3.77 M/mm3 (4.6-6.2); White Blood Count 6.9 K/mm3 (4.4-11.0)
[2023-10-24 12:07] LABS: AST(SGOT) 19 U/L (15-37); Alanine Aminotransfer ALT/SGPT 20 U/L (16-61); Albumin, Serum 3.7 g/dL (3.2-5.0); Alkaline Phosphatase 63 U/L (45-117); Anion Gap 4 (5-15); BUN 11 mg/dL (7-18); BUN/Creat Ratio 12.9 RATIO (10-20); Calcium,Total 9.2 mg/dL (8.5-10.1); Chloride 105 mmol/L (98-107); Creatinine, Serum 0.86 mg/dL (0.70-1.30); EST Glomerular Filtration Rate 95 mL/min (>60); Est Glom Filt Rate - Afr Amer 115 mL/min (>60); Globulin 3.8 g/dL (2.2-4.2); Glucose 81 mg/dL (74-106); Protein, Total 7.5 g/dL (6.4-8.2); Sodium Level 139 mmol/L (136-145)
== END | disposition home or self-care (01) ==
LOC: LABSPEC 11:36
PROVIDERS: PCP Family Medicine; Referring Provider Internal Medicine Rheumatology; Visit Provider Internal Medicine Rheumatology
DX: M06.00 Rheumatoid arthritis without rheumatoid factor, unspecified site (principal); Z79.899 Other long term (current) drug therapy
CPT/HCPCS: 80053; 85025

== ENCOUNTER → 2024-01-18 | Outpatient (CLI) | payer OTHER, SELFPAY ==
[2024-01-18 11:43] LABS: Absolute Lymphocyte Count 1.61 X10^3/uL (0.83-4.51); Absolute Neutrophil Count 4.6 X10^3/uL (2.0-7.7); Basophil# 0.05 X10^3/uL; Basophil% 0.7 % (0-1); Eosinophils% 1.4 % (0-5); Hematocrit 40.8 % (40-54); Hemoglobin 14.1 g/dL (13.0-16.5); Lymphocyte # 1.61 X10^3/ul (0.83-4.51); Lymphocyte % 22.4 % (19-41); Mean Corp Hgb Conc 34.6 g/dL (32-36); Mean Corpuscular Hgb 38.2 pg (27.0-32.0); Mean Corpuscular Volume 110.6 fL (80-94); Mean Platelet Vol. 10.3 fl (6.2-12.0); Monocyte# 0.82 X10^3/uL; Monocyte% 11.4 % (0-10); NRBC Flagged by Analyzer 0 % (0-5); Neutrophil # 4.58 X10^3/uL (2.7-7.7); Neutrophil % 63.7 % (47-70); Platelet Count 237 K/mm3 (150-450); RBC Distribution Width CV 15.2 % (11.6-14.6); RBC Distribution Width SD 62.2 fl (35.1-43.9); Red Blood Count 3.69 M/mm3 (4.6-6.2); White Blood Count 7.2 K/mm3 (4.4-11.0)
[2024-01-18 12:06] LABS: ALB/GLOB Ratio 0.9 RATIO (0.9-2.4); AST(SGOT) 15 U/L (15-37); Alanine Aminotransfer ALT/SGPT 19 U/L (16-61); Albumin, Serum 3.7 g/dL (3.2-5.0); Alkaline Phosphatase 66 U/L (45-117); Anion Gap 5 (5-15); BUN 13 mg/dL (7-18); BUN/Creat Ratio 14.6 RATIO (10-20); Calcium,Total 9.6 mg/dL (8.5-10.1); Chloride 105 mmol/L (98-107); Creatinine, Serum 0.89 mg/dL (0.70-1.30); EST Glomerular Filtration Rate 91 mL/min (>60); Est Glom Filt Rate - Afr Amer 110 mL/min (>60); Glucose 88 mg/dL (74-106); Potassium 4.2 mmol/L (3.5-5.1); Protein, Total 7.7 g/dL (6.4-8.2); Sodium Level 138 mmol/L (136-145)
== END | disposition home or self-care (01) ==
PROVIDERS: PCP Family Medicine; Referring Provider Internal Medicine Rheumatology; Visit Provider Internal Medicine Rheumatology
DX: M06.00 Rheumatoid arthritis without rheumatoid factor, unspecified site (principal); M21.40 Flat foot [pes planus] (acquired), unspecified foot; M47.892 Other spondylosis, cervical region; I10 Essential (primary) hypertension; Z79.899 Other long term (current) drug therapy
CPT/HCPCS: 80053; 85025

== ENCOUNTER → 2024-02-27 | Outpatient (CLI) | payer OTHER, SELFPAY ==
--- NOTE | 2024-02-27 13:14 | CT_ITS ---
STUDY: LOW DOSE CT LUNG CANCER SCREENING REASON FOR EXAM: Male, 63 years old. Lung cancer screening -- and gt;20 pk yr hx;current smoker; asymptomatic RADIATION DOSAGE (If Supplied By Facility): CTDIvol = ( 2.01 ) mGy, DLP = ( 79.77 ) mGycm TECHNIQUE: No contrast was administered. Low dose technique was utilized (average mAS-38 and kVp 120). 1.25 mm axial source images with a slice interval of 1.25-mm were reconstructed in lung windows. 2.5 mm axial source images with a slice interval of 2.5-mm were reconstructed in lung windows. 5.0 mm axial source images with a slice interval of 5.0-mm were reconstructed in soft tissue windows. COMPARISON: Comparison is made with prior study dated February 17, 2023. NODULES: No suspicious findings are seen. Emphysema: Mild emphysematous changes and stable minimal scarring at the lung bases. Endobronchial lesion: Aorta: Atherosclerotic plaque formation of the aortic arch. CORONARY ARTERIES: Coronary artery calcification is seen. Heart: Unremarkable Pulmonary artery: Unremarkable Mediastinal nodes: Small mediastinal lymph nodes. Other chest and abdominal findings: CT/Low Dose CT Lung Screening IMPRESSION: Lung-RADS category 2 - Continue annual screening with LDCT in 12 months. IMPORTANT NOTES FOR USE: ACR Lung-RADS Version 1.1 Assessment Categories Release Date: 2018 Category: Coded 0-4 bases on nodule(s) with highest degree of suspicion. Negative screen is defined as categories 1 and 2; a positive screen is defined as categories 3 and 4. Category 3 and 4A nodules that are unchanged on interval CT should be coded as category 2, and individuals returned to screening in 12 months. Category 4X: Category 3 or 4 nodules with additional imaging findings that increase the suspicion of lung cancer, such as spiculation, GGN that doubles in size in 1 year, enlarged lymph notes, etc. Category Modifiers: S (significant finding unrelated to lung cancer) Electronically Signed: John Hernandez MD at 13:51 EDT ,
== END | disposition home or self-care (01) ==
LOC: CT 13:14
PROVIDERS: PCP Nurse Practitioner Family; Referring Provider Nurse Practitioner Family; Visit Provider Nurse Practitioner Family
DX: Z87.891 Personal history of nicotine dependence (principal); Z08 Encounter for follow-up examination after completed treatment for malignant neoplasm; Z85.118 Personal history of other malignant neoplasm of bronchus and lung
CPT/HCPCS: 71271

== ENCOUNTER → 2024-04-11 | Outpatient (CLI) | payer OTHER, SELFPAY ==
[2024-04-11 11:40] LABS: Absolute Neutrophil Count 4.5 X10^3/uL (2.0-7.7); Basophil# 0.06 X10^3/uL; Basophil% 0.9 % (0-1); Eosinophil# 0.15 X10^3/uL; Eosinophils% 2.1 % (0-5); Hematocrit 37.7 % (40-54); Hemoglobin 12.8 g/dL (13.0-16.5); Mean Corpuscular Hgb 38.6 pg (27.0-32.0); Mean Corpuscular Volume 113.6 fL (80-94); Mean Platelet Vol. 10.7 fl (6.2-12.0); Monocyte# 0.85 X10^3/uL; Monocyte% 12.2 % (0-10); NRBC Flagged by Analyzer 0 % (0-5); Neutrophil % 64.4 % (47-70); Platelet Count 206 K/mm3 (150-450); RBC Distribution Width CV 15.4 % (11.6-14.6); RBC Distribution Width SD 63.5 fl (35.1-43.9); Red Blood Count 3.32 M/mm3 (4.6-6.2)
[2024-04-11 11:48] LABS: AST(SGOT) 19 U/L (15-37); Alanine Aminotransfer ALT/SGPT 17 U/L (16-61); Albumin, Serum 3.5 g/dL (3.2-5.0); Alkaline Phosphatase 58 U/L (45-117); Anion Gap 4 (5-15); BUN 13 mg/dL (7-18); Calcium,Total 9.4 mg/dL (8.5-10.1); Chloride 107 mmol/L (98-107); Creatinine, Serum 0.81 mg/dL (0.70-1.30); EST Glomerular Filtration Rate 101 mL/min (>60); Est Glom Filt Rate - Afr Amer 122 mL/min (>60); Globulin 3.4 g/dL (2.2-4.2); Glucose 93 mg/dL (74-106); Potassium 4.1 mmol/L (3.5-5.1); Protein, Total 6.9 g/dL (6.4-8.2); Sodium Level 139 mmol/L (136-145)
== END | disposition home or self-care (01) ==
PROVIDERS: PCP Nurse Practitioner Family; Referring Provider Internal Medicine Rheumatology; Visit Provider Internal Medicine Rheumatology
DX: M06.00 Rheumatoid arthritis without rheumatoid factor, unspecified site (principal); Z79.899 Other long term (current) drug therapy
CPT/HCPCS: 80053; 85025

== ENCOUNTER → 2024-06-27 | Outpatient (CLI) | payer OTHER, SELFPAY ==
[2024-06-27 11:43] LABS: Absolute Lymphocyte Count 1.41 X10^3/uL (0.83-4.51); Absolute Neutrophil Count 4.1 X10^3/uL (2.0-7.7); Basophil# 0.04 X10^3/uL; Basophil% 0.6 % (0-1); Eosinophil# 0.13 X10^3/uL; Hematocrit 39.2 % (40-54); Hemoglobin 13.6 g/dL (13.0-16.5); Lymphocyte # 1.41 X10^3/ul (0.83-4.51); Lymphocyte % 21.5 % (19-41); Mean Corp Hgb Conc 34.7 g/dL (32-36); Mean Corpuscular Hgb 38.9 pg (27.0-32.0); Mean Platelet Vol. 10.2 fl (6.2-12.0); Monocyte# 0.87 X10^3/uL; Monocyte% 13.3 % (0-10); NRBC Flagged by Analyzer 0 % (0-5); Neutrophil # 4.08 X10^3/uL (2.7-7.7); Neutrophil % 62.1 % (47-70); Platelet Count 235 K/mm3 (150-450); RBC Distribution Width CV 15.2 % (11.6-14.6); RBC Distribution Width SD 60.8 fl (35.1-43.9); White Blood Count 6.6 K/mm3 (4.4-11.0)
[2024-06-27 12:06] LABS: AST(SGOT) 19 U/L (15-37); Alanine Aminotransfer ALT/SGPT 16 U/L (16-61); Albumin, Serum 3.8 g/dL (3.2-5.0); Alkaline Phosphatase 68 U/L (45-117); Anion Gap 2 (5-15); BUN 11 mg/dL (7-18); BUN/Creat Ratio 13.5 RATIO (10-20); Calcium,Total 9.1 mg/dL (8.5-10.1); Chloride 106 mmol/L (98-107); Creatinine, Serum 0.82 mg/dL (0.70-1.30); EST Glomerular Filtration Rate 100 mL/min (>60); Est Glom Filt Rate - Afr Amer 122 mL/min (>60); Globulin 3.7 g/dL (2.2-4.2); Glucose 82 mg/dL (74-106); Potassium 3.9 mmol/L (3.5-5.1); Protein, Total 7.5 g/dL (6.4-8.2); Sodium Level 139 mmol/L (136-145)
== END | disposition home or self-care (01) ==
LOC: LABSPEC 11:19
PROVIDERS: PCP Nurse Practitioner Family; Referring Provider Internal Medicine Rheumatology; Visit Provider Internal Medicine Rheumatology
DX: M06.00 Rheumatoid arthritis without rheumatoid factor, unspecified site (principal); Z79.899 Other long term (current) drug therapy
CPT/HCPCS: 80053; 85025

== ENCOUNTER → 2024-09-25 | Outpatient (CLI) | payer OTHER, SELFPAY ==
[2024-09-25 11:56] LABS: Absolute Lymphocyte Count 1.55 X10^3/uL (0.83-4.51); Absolute Neutrophil Count 3.8 X10^3/uL (2.0-7.7); Basophil# 0.05 X10^3/uL; Basophil% 0.8 % (0-1); Eosinophil# 0.11 X10^3/uL; Eosinophils% 1.7 % (0-5); Hematocrit 39.6 % (40-54); Hemoglobin 13.7 g/dL (13.0-16.5); Lymphocyte # 1.55 X10^3/ul (0.83-4.51); Lymphocyte % 24.4 % (19-41); Mean Corp Hgb Conc 34.6 g/dL (32-36); Mean Corpuscular Hgb 38.1 pg (27.0-32.0); Mean Platelet Vol. 10.5 fl (6.2-12.0); Monocyte# 0.73 X10^3/uL; Monocyte% 11.5 % (0-10); NRBC Flagged by Analyzer 0 % (0-5); Neutrophil # 3.78 X10^3/uL (2.7-7.7); Neutrophil % 59.6 % (47-70); Platelet Count 234 K/mm3 (150-450); RBC Distribution Width SD 59.6 fl (35.1-43.9); White Blood Count 6.4 K/mm3 (4.4-11.0)
[2024-09-25 14:16] LABS: ALB/GLOB Ratio 1.4 RATIO (0.9-2.4); AST(SGOT) 24 U/L (<=37); Alanine Aminotransfer ALT/SGPT 12 U/L (<=46); Albumin, Serum 4.2 g/dL (3.4-4.8); Alkaline Phosphatase 67 U/L (40-129); Anion Gap 12 (5-15); BUN 11 mg/dL (4-19); BUN/Creat Ratio 12.8 RATIO (10-20); Calcium,Total 9.4 mg/dL (7.6-11.0); Carbon Dioxide 23.9 mmol/L (21.0-32.0); Chloride 102 mmol/L (98-108); Creatinine, Serum 0.84 mg/dL (0.70-1.20); EST Glomerular Filtration Rate 96 (>60); Globulin 2.9 g/dL (2.2-4.2); Glucose 102 mg/dL (70-99); Potassium 4.1 mmol/L (3.3-5.1); Protein, Total 7.1 g/dL (5.9-8.4); Sodium Level 138 mmol/L (133-145); Total Bilirubin 0.26 mg/dL (0.00-1.30)
== END | disposition home or self-care (01) ==
PROVIDERS: PCP Nurse Practitioner Family; Referring Provider Internal Medicine Rheumatology; Visit Provider Internal Medicine Rheumatology
DX: M06.00 Rheumatoid arthritis without rheumatoid factor, unspecified site (principal); Z79.899 Other long term (current) drug therapy
CPT/HCPCS: 80053; 85025

== ENCOUNTER → 2024-12-27 | Outpatient (CLI) | payer OTHER, SELFPAY ==
[2024-12-27 12:19] LABS: Absolute Lymphocyte Count 1.48 X10^3/uL (0.83-4.51); Absolute Neutrophil Count 5.4 X10^3/uL (2.0-7.7); Basophil# 0.05 X10^3/uL; Basophil% 0.6 % (0-1); Eosinophil# 0.12 X10^3/uL; Eosinophils% 1.5 % (0-5); Hematocrit 37.7 % (40-54); Lymphocyte # 1.48 X10^3/ul (0.83-4.51); Lymphocyte % 18.3 % (19-41); Mean Corp Hgb Conc 34.5 g/dL (32-36); Mean Corpuscular Hgb 38.1 pg (27.0-32.0); Mean Corpuscular Volume 110.6 fL (80-94); Mean Platelet Vol. 9.9 fl (6.2-12.0); Monocyte# 1.03 X10^3/uL; Monocyte% 12.8 % (0-10); NRBC Flagged by Analyzer 0 % (0-5); Neutrophil # 5.36 X10^3/uL (2.7-7.7); Neutrophil % 66.4 % (47-70); Platelet Count 240 K/mm3 (150-450); RBC Distribution Width CV 15.7 % (11.6-14.6); RBC Distribution Width SD 63.1 fl (35.1-43.9); Red Blood Count 3.41 M/mm3 (4.6-6.2); White Blood Count 8.1 K/mm3 (4.4-11.0)
[2024-12-27 12:52] LABS: ALB/GLOB Ratio 1.4 RATIO (0.9-2.4); AST(SGOT) 25 U/L (<=37); Alanine Aminotransfer ALT/SGPT 14 U/L (<=46); Albumin, Serum 4.3 g/dL (3.4-4.8); Alkaline Phosphatase 62 U/L (40-129); Anion Gap 11 (5-15); BUN 22 mg/dL (4-19); BUN/Creat Ratio 29.9 RATIO (10-20); Calcium,Total 9.6 mg/dL (7.6-11.0); Carbon Dioxide 24.3 mmol/L (21.0-32.0); Chloride 102 mmol/L (98-108); Creatinine, Serum 0.73 mg/dL (0.70-1.20); EST Glomerular Filtration Rate 101 (>60); Glucose 83 mg/dL (70-99); Potassium 4.3 mmol/L (3.3-5.1); Protein, Total 7.3 g/dL (5.9-8.4); Sodium Level 138 mmol/L (133-145); Total Bilirubin 0.27 mg/dL (0.00-1.30)
== END | disposition home or self-care (01) ==
LOC: LABSPEC 11:41
PROVIDERS: PCP Nurse Practitioner Family; Referring Provider Internal Medicine Rheumatology; Visit Provider Internal Medicine Rheumatology
DX: M06.00 Rheumatoid arthritis without rheumatoid factor, unspecified site (principal); M21.40 Flat foot [pes planus] (acquired), unspecified foot; Z79.899 Other long term (current) drug therapy
CPT/HCPCS: 80053; 85025

== ENCOUNTER → 2025-03-19 | Outpatient (CLI) | payer OTHER, SELFPAY ==
[2025-03-19 11:46] LABS: Hematocrit 41.0 % (40-54); Hemoglobin 14.3 g/dL (13.0-16.5); Immature Granulocytes Count 0.020 X10^3/uL (0.0-0.0); Mean Corp Hgb Conc 34.9 g/dL (32-36); Mean Corpuscular Volume 106.8 fL (80-94); Mean Platelet Vol. 9.8 fl (6.2-12.0); NRBC Flagged by Analyzer 0 % (0-5); Platelet Count 221 K/mm3 (150-450); RBC Distribution Width CV 15.1 % (11.6-14.6); RBC Distribution Width SD 59.3 fl (35.1-43.9); Red Blood Count 3.84 M/mm3 (4.6-6.2); White Blood Count 7.7 K/mm3 (4.4-11.0)
[2025-03-19 12:10] LABS: AST(SGOT) 19 U/L (<=37); Alanine Aminotransfer ALT/SGPT 12 U/L (<=46); Albumin, Serum 4.2 g/dL (3.4-4.8); Alkaline Phosphatase 64 U/L (40-129); Anion Gap 12 (5-15); BUN 13 mg/dL (4-19); BUN/Creat Ratio 16.6 RATIO (10-20); Calcium,Total 9.8 mg/dL (7.6-11.0); Carbon Dioxide 25.4 mmol/L (21.0-32.0); Chloride 104 mmol/L (98-108); Globulin 3.1 g/dL (2.2-4.2); Glucose 106 mg/dL (70-99); Potassium 3.9 mmol/L (3.3-5.1)
== END | disposition home or self-care (01) ==
LOC: LAB 11:38
PROVIDERS: PCP Nurse Practitioner Family; Referring Provider Internal Medicine Rheumatology; Visit Provider Internal Medicine Rheumatology
DX: M06.00 Rheumatoid arthritis without rheumatoid factor, unspecified site (principal); Z79.899 Other long term (current) drug therapy
CPT/HCPCS: 80053; 85025

== ENCOUNTER → 2025-06-11 | Outpatient (CLI) | payer OTHER, SELFPAY ==
[2025-06-11 11:50] LABS: Hematocrit 38.2 % (40-54); Hemoglobin 13.2 g/dL (13.0-16.5); Immature Granulocytes Count 0.020 X10^3/uL (0.0-0.0); Mean Corp Hgb Conc 34.6 g/dL (32-36); Mean Corpuscular Volume 110.4 fL (80-94); Mean Platelet Vol. 10.6 fl (6.2-12.0); NRBC Flagged by Analyzer 0 % (0-5); Platelet Count 222 K/mm3 (150-450); RBC Distribution Width CV 15.3 % (11.6-14.6); RBC Distribution Width SD 61.7 fl (35.1-43.9); Red Blood Count 3.46 M/mm3 (4.6-6.2); White Blood Count 7.4 K/mm3 (4.4-11.0)
[2025-06-11 12:16] LABS: AST(SGOT) 20 U/L (<=37); Alanine Aminotransfer ALT/SGPT 11 U/L (<=46); Albumin, Serum 4.1 g/dL (3.4-4.8); Alkaline Phosphatase 61 U/L (40-129); Anion Gap 8 (5-15); BUN 12 mg/dL (4-19); BUN/Creat Ratio 20.2 RATIO (10-20); Calcium,Total 8.9 mg/dL (7.6-11.0); Carbon Dioxide 27.0 mmol/L (21.0-32.0); Chloride 103 mmol/L (98-108); Globulin 3.0 g/dL (2.2-4.2); Glucose 106 mg/dL (70-99); Potassium 3.8 mmol/L (3.3-5.1)
== END | disposition home or self-care (01) ==
LOC: LABSPEC 11:28
PROVIDERS: PCP Nurse Practitioner Family; Referring Provider Internal Medicine Rheumatology; Visit Provider Internal Medicine Rheumatology
DX: M06.00 Rheumatoid arthritis without rheumatoid factor, unspecified site (principal); Z79.899 Other long term (current) drug therapy
CPT/HCPCS: 80053; 85025

== ENCOUNTER → 2025-07-15 | Outpatient (CLI) | payer OTHER, SELFPAY ==
--- NOTE | 2025-07-15 13:58 | CT_ITS ---
PROCEDURE: LOW DOSE CT LUNG SCREENING 07/15/2025 REASON FOR EXAM: LUNG CANCER SCREENING TECHNIQUE: Procedure Code: [id number] Modality: CT Procedure: LOW DOSE CT LUNG SCREENING Coronal and Sagittal reconstruction series were provided. One or more dose reduction techniques were used (e.g., Automated exposure control, adjustment of the mA and/or kV according to patient size, use of iterative reconstruction technique). REFERENCE LINK: [employer] Lung-RADS RADIATION DOSE SUMMARY: CTDlvol: 2 mGy DLP: 78 mGycm COMPARISON: 02/27/2024. FINDINGS: Degenerative changes of the spine. Osseous demineralization. Thyroid is unremarkable. The esophagus is normal in caliber. No acute upper abdominal abnormalities. Moderate atherosclerosis. Normal caliber thoracic aorta. Coronary artery calcifications are present. The heart is normal in size. No suspicious mediastinal lymphadenopathy. Mild centrilobular emphysema. No suspicious pulmonary nodules. A couple of bilateral lower lobe thin linear bands likely representing scar. CT/Low Dose CT Lung Screening IMPRESSION: No suspicious pulmonary nodules. Mild centrilobular emphysema. Scattered thin linear bands in the bilateral lower lobes, most consistent with scarring. Coronary artery calcifications. Lung RADS category 1, negative. Recommendation for continued annual low dose CT lung cancer screening per guide lines. Reading Location: [facility]
== END | disposition home or self-care (01) ==
LOC: CT 13:57
PROVIDERS: PCP Nurse Practitioner Family; Referring Provider Nurse Practitioner Family; Visit Provider Nurse Practitioner Family
DX: Z12.2 Encounter for screening for malignant neoplasm of respiratory organs (principal); Z87.891 Personal history of nicotine dependence
CPT/HCPCS: 71271